=== PATIENT | female | born 1985 | race American Indian/Alaskan Native ===

== ENCOUNTER 2017-07-01 10:10 | Day surgery (SDC) | payer MEDICAID ==
--- NOTE | 2017-06-30 19:07 | History and Physical Report ---
History of Present Illness Date of examination: 06/28/17 Chief complaint: 9wks MAB History of present illness: IUP measuring 9w1d w/o fht. reviewed findings with patient Past History : 3 Term Births: 2 Living Children: 2 Para: 2 Aborta: 0 # 1 Delivery date: 2004 Weeks Gestation: term Delivery type: Delivery location: [facility] Sex: Male weight: 5#14 # 2 Delivery date: 2009 Weeks Gestation: 41 Delivery type: Delivery location: [facility] Sex: Male weight: 11lbs Past Medical History: no hx of dvt while taking ocp Depression - prosac Past Surgical History: Past Medical History Surgery (Non-ob gyn physician assistant): Abnormal PAP: positive, +HPV FRANCO Exposure: negative Infertility: negative Uterine Anomaly: negative Uterine Surgery (not C/S): negative Other Gynecologic Problems: negative Social Hx: Patient is single Smoking - 1/2 pack per day stay at home mom Infection History Hx of STD: HPV HIV Risk Eval: low risk Hepatitis B Risk Eval: low risk Personal hx. of genital herpes: no Partner hx. of genital herpes: no Rash, Viral, or Febrile illness since last LMP? no Varicella/Chicken Pox Status: Previous Disease Genetic History Congenital Heart Defect: Mom: no Dad: no Edmond Disease: Mom: no Dad: no Thalassemia Mom: no Dad: no Neural Tube Defect Mom: no Dad: no Down's Syndrome Mom: no Dad: no Bryan-Sachs Mom: no Dad: no Sickle Cell Disease/Trait Mom: no Dad: no Hemophilia Mom: no Dad: no Muscular Dystrophy Mom: no Dad: no Cystic Fibrosis Mom: no Dad: no [place] Chorea Mom: no Dad: no Mental Retardation Mom: no Dad: no Fragile X Mom: no Dad: no Other Genetic/Chromosomal Disorder Mom: no Dad: no Child w/other defect Mom: no Dad: no Enviromental Exposures Xray Exposure: no Medication, drug, or alcohol use since LMP: no Chemical/Other Exposure: no Exposure to Cat Liter: no Hx of Parvovirus (Fifth Disease): no Occupational Exposure to Children: none Active Medications (reviewed today): DEPO-PROVERA 150 MG/ML INTRAMUSCULAR SUSPENSION (MEDROXYPROGESTERONE ACETATE) 1 inj x every 12 weeks NYSTATIN-TRIAMCINOLONE 750551-8.1 UNIT/GM-% EXTERNAL CREAM (NYSTATIN- TRIAMCINOLONE) apply bid to area TANDEM DHA CAPS ([id number]-OMEGA 3 CAPS) T1 QD DIFLUCAN TAB 150MG () 1 po x 1 Current Allergies (reviewed today): * NKDA (Critical) Laboratory Results Urine HCG: positive Review of Systems General Denies fever, chills, sweats, anorexia, fatigue, weakness, malaise, weight loss and sleep disorder. Denies nausea, vomiting, headache, swelling of legs, abdominal pain, vaginal discharge, vaginal bleeding and contractions. Denies vaginal discharge, incontinence, dysuria, hematuria, urinary frequency, amenorrhea, menorrhagia, abnormal vaginal bleeding, pelvic pain, genital sores, decreased libido, painful periods, painful sex, urinary urgency, hot flashes, vaginal dryness, vaginal itching and vaginal odor. CV Denies chest pains, palpitations, syncope, dyspnea on exertion, orthopnea, PND and peripheral edema. Resp Denies cough, dyspnea at rest, excessive sputum, hemoptysis, wheezing and pleurisy. GI Denies nausea, vomiting, diarrhea, constipation, change in bowel habits, abdominal pain, melena, hematochezia, jaundice, gas/bloating, indigestion/ heartburn, dysphagia and odynophagia. Endo Denies cold intolerance, heat intolerance, polydipsia, polyphagia, polyuria and unusual weight change. Breast Denies left breast lump, right breast lump, nipple discharge, bloody discharge from nipple, breast pain, abnormal mammogram and breast enlargement. MS Denies back pain, joint pain, joint swelling, muscle cramps, muscle weakness, stiffness, arthritis, sciatica, restless legs, leg pain at night and leg pain with exertion. Derm Denies rash, itching, dryness and suspicious lesions. Neuro Denies paralysis, paresthesias, headache, seizures, tremors, vertigo, transient blindness, frequent falls, frequent headaches and difficulty walking. Psych Denies depression, anxiety, irritability and mood swings. Eyes Denies blurring, diplopia, irritation, discharge, vision loss, eye pain and photophobia. ENT Denies earache, ear discharge, tinnitus, decreased hearing, nasal congestion, nosebleeds, sore throat and hoarseness. Allergy Denies urticaria, allergic rash, hay fever and recurrent infections. Heme Denies abnormal bruising, bleeding and enlarged lymph nodes. PHYSICAL EXAM Skin no significant abnormal lesions or rashes Chest: respiratory effort normal, clear to auscultation CV: regular, normal S1-S2, no murmur, no rub, no gallop Abdomen: normal bowel sounds, soft, nontender, no HSM Musculoskeletal: grossly normal ROM in joints, no joint tenderness or muscle weakness Medications and Allergies Allergies Allergy/AdvReac Type Severity Reaction Status Date / Time No Known Allergies Allergy Verified 06/29/17 12:54 Home Medications Medication Instructions Recorded Confirmed Last Taken Type Loratadine 10 mg PO BID 06/29/17 06/29/17 Unknown History Active Meds: Active Medications Cefazolin Sodium (Ancef/Sterile Water 2 Gm/20 Ml) 2 gm in 20 mls @ 80 mls/hr IV PREOP NR PRN Reason: Protocol Assessment and Plan - Patient Problems (1) Missed Status: Acute Plan to address problem: Options reviewed, quesitons answered she voiced understanding. Patient with 9week MAB desires to proceed with D&C. Consent reviewed and signed . Possible laparoscopy or laparotomy explained to patient. The risks and alternatives for this surgery were reviewed with the patient. She was informed of possible bleeding, infection, injury to bowel, bladder, ureters or other adjacent organs. The patient was instructed/informed the following: The normal length of hospital stay for this procedure. Nothing to eat or drink after midnight the evening prior to surgery. Clear liquids the day before surgery. Pre-op instruction sheets given. Wound care instructions given. Infection precautions reviewed, patient to call for any signs or symptoms of infection. The usual discomforts associated with this procedure were detailed. Proper use of pain medicines was reviewed. Patient was given ample opportunity to have all her questions answered before signing informed consent.
[~2017-07-01 10:10] MED LIST: ANCEF/STERILE WATER 2 GM/20 ML 2 GM/20 ML SYRINGE IV NR
--- NOTE | 2017-07-01 12:44 | Anesthesia Consultation ---
Anesthesia Consult and Med Hx Date of service: 07/01/17 - Airway Anesthetic Teeth Evaluation: Good ROM Head & Neck: Adequate Mental/Hyoid Distance: Adequate Mallampati Class: Class I Intubation Access Assessment: Good - Pulmonary Exam CTA: Yes - Cardiac Exam Cardiac Exam: RRR - Pre-Operative Health Status ASA Pre-Surgery Classification: ASA2 Proposed Anesthetic Plan: General - Pulmonary Hx Smoking: Yes (current) - Central Nervous System Hx Psychiatric Problems: No - Other Systems Hx Cancer: No
--- NOTE | 2017-07-01 12:44 | Anesthesia Day of Surgery ---
Anesthesia Day of Surgery - Day of Surgery Patient Examined: Yes Patient H&P Reviewed: Yes Patient is NPO: Yes
[2017-07-01] MEDS ORDERED: DILAUDID IV PRN (12:45)
[2017-07-01] MEDS ORDERED: PERCOCET 5/325 PO PRN (12:45)
[2017-07-01 12:48] LABS: Mean Corpuscular HGB Conc 34 % (30-34); Mean Corpuscular Hemoglobin 33 pg (28-32); Mean Corpuscular Volume 97 fl (79-97); Platelet Count 272 K/mm3 (140-440); Red Blood Count 3.62 M/mm3 (3.65-5.03); Red Cell Distribution Width 12.3 % (13.2-15.2); White Blood Count 9.1 K/mm3 (4.5-11.0)
[2017-07-01] MEDS ORDERED: LACTATED RINGERS 1,000 ML IV SCH (13:00)
[2017-07-01] MEDS ORDERED: VERSED IV NR (13:00)
[2017-07-01] MEDS ORDERED: DILAUDID ONE (13:01)
[2017-07-01] MEDS ORDERED: DIPRIVAN 10 MG/ML IV ONE (13:01)
[2017-07-01] MEDS ORDERED: XYLOCAINE MPF 2% ONE (13:02)
[2017-07-01] MEDS ORDERED: ROBINUL ONE (13:02)
[2017-07-01] MEDS ORDERED: TORADOL ONE (13:02)
[2017-07-01] MEDS ORDERED: DECADRON ONE (13:02)
[2017-07-01] MEDS ORDERED: ZOFRAN ONE ×2 (13:02→15:02)
[2017-07-01] MEDS ORDERED: METHERGINE IM ONE (14:08)
[2017-07-01] MEDS ORDERED: NACL 0.9% IR ONE (14:09)
--- NOTE | 2017-07-01 14:18 | Operative Report ---
Operative Report Operative Report: Date of procedure: 07/01/2017 Pre-operative diagnosis: Missed Post-operative diagnosis: Same Procedure name(s): Suction dilatation and curettage Surgeon: Tad Francis MD General Accountant: [] Anesthesia: General EBL: 50 mL Complications: None Findings: A small amount of tissue consistent with products of conception Specimen(s): Uterine contents Procedure: The patient was brought operating room where general anesthesia was induced without difficulty. Patient was placed in dorsal lithotomy position prepped and draped in the usual sterile manner. Rubber catheter was used to empty her bladder. Speculum placed in the vagina. Tenaculum was placed at 12: 00. The cervix was dilated progressively with Hegar dilators. A 10 mm suction catheter was placed through the cervical os. Several passes of the suction catheter removed the uterine contents. General curettage was done with a banjo curettte. On until a gritty sensation was felt throughout the uterine cavity. Further suction with the suction curettage revealed no further products. All instruments were removed patient was hemostatic. She was awakened in the operating room and accompanied to recovery room in good condition.
--- NOTE | 2017-07-01 14:21 | Short Stay Summary ---
Short Stay Documentation Date of service: 07/01/17 - History H&P: dictated - Allergies and Medications Current Medications: Allergies No Known Allergies Allergy (Verified 06/29/17 12:54) Home Medications Medication Instructions Recorded Confirmed Last Taken Type Loratadine 10 mg PO BID 06/29/17 07/01/17 07/01/17 09:15 History Active Medications Hydromorphone HCl (Dilaudid) 0.5 mg IV Q10MIN PRN PRN Reason: Pain , Severe (7-10) Stop: 07/01/17 23:59 Cefazolin Sodium (Ancef/Sterile Water 2 Gm/20 Ml) 2 gm in 20 mls @ 80 mls/hr IV PREOP NR PRN Reason: Protocol Stop: 07/01/17 23:59 Lactated Ringer's (Lactated Ringers) 1,000 mls @ 100 mls/hr IV DIRECT BRITT Last Admin: 07/01/17 12:55 Dose: 100 mls/hr Midazolam HCl (Versed) 2 mg IV PREOP NR Stop: 07/01/17 23:59 Last Admin: 07/01/17 13:25 Dose: 2 mg Oxycodone/Acetaminophen (Percocet 5/325) 1 tab PO ONCE PRN PRN Reason: Pain, Moderate (4-6) - Brief post op/procedure progress note Date of procedure: 07/01/17 (See dictated note) Procedure: D&C - Hospital course Hospital course: Patient was admitted underwent the above him procedure without any complications. Patient will be discharged with follow-up in office in 1-2 weeks for postop check. - Disposition Condition at discharge: Good Disposition: DC-01 TO HOME OR SELFCARE - Discharge Diagnoses (1) Missed Status: Acute Short Stay Discharge Plan Activity: advance as tolerated Diet: regular Follow up with: JOHNATHON LYNN MD [Primary Care Provider] - 7 Days
[2017-07-01] MEDS ORDERED: SILVER NITRATE TP ONE (14:30)
--- NOTE | 2017-07-01 14:39 | Post Anesthesia Evaluation ---
- Post Anesthesia Evaluation Patient Participated: Yes Airway Patent: Yes Stable Respiratory Function: Yes Nausea/Vomiting: No Temp > 96.8F: Yes Pain Manageable: Yes Adequeate Hydration: Yes Anesthesia Complications: No
[2017-07-01] MEDS ORDERED: BENADRYL ONE (14:57)
[2017-07-01 15:53] VITALS: BP 127/81
[2017-07-01] MEDS ORDERED: BENADRYL IV ONE (16:14)
[2017-07-01] MEDS ORDERED: ZOFRAN IM ONE (16:15)
== END 2017-07-01 15:40 | disposition home or self-care (01) ==
LOC: OR 10:10
PROVIDERS: ATTEND Obstetrics & Gynecology
DX: O02.1 Missed abortion (principal); Z3A.09 9 weeks gestation of pregnancy; F17.200 Nicotine dependence, unspecified, uncomplicated; K21.9 Gastro-esophageal reflux disease without esophagitis; F32.9 Major depressive disorder, single episode, unspecified; Z98.890 Other specified postprocedural states; Z79.899 Other long term (current) drug therapy; Z98.42 Cataract extraction status, left eye
CPT/HCPCS: 36415; 59820; 85027; 86850; 86900; 86901; 88305; J0690; J1170; J1200; J1885; J2210; J2250; J2405; J2704; J7120; J1100

== ENCOUNTER 2020-09-14 22:32 | Inpatient (IN) | payer MEDICAID ==
[2020-09-14] MEDS ORDERED: LACTATED RINGERS 1,000 ML IV ONE (23:14)
[2020-09-14] MEDS ORDERED: LACTATED RINGERS 500 ML IV ONE (23:32)
[2020-09-14] MEDS ORDERED: ONDANSETRON 4 MG/2 ML INJ IV PRN (23:32)
[2020-09-14] MEDS ORDERED: LACTATED RINGERS 1,000 ML IV SCH (23:45)
[2020-09-15 00:17] LABS: Bilirubin,Urine NEG (Negative); Blood,Urine LG (Negative); Color,Urine Red (Yellow); Urobilinogen,Urine < 2.0 mg/dL (<2.0)
[2020-09-15 00:23] LABS: Protein,Urine >500 mg/dL (Negative); RBC,Urine < 182.0 /HPF (0.0-6.0); WBC,Urine > 182.0 /HPF (0.0-6.0)
--- NOTE | 2020-09-15 00:25 | History and Physical Report ---
History of Present Illness Date of examination: 09/15/20 (Vaginal bleeding) Date of admission: 09/14/2020 Chief complaint: "Heavy vaginal bleeding" that started tonight. History of present illness: Pt states bleeding that started tonight and became heavy after returning to bed from the restroom. Denies recent sexual activity and states that she has not been told that she has any abnormalities of the placenta. U/s in triage during this visit revealed low lying placenta. After the u/s was reviewed with the patient, she states that she was just told not to have sex. After further evaluation of her chart from the office, it was revealed that she has placenta previa. EDC Confirmation: 11/03/2020 Past History : 4 Term Births: 2 Premature Births: 0 Living Children: 2 Para: 2 Mult. Births: 0 Prev : 1 Prev. attempt? 0 Aborta: 1 Elect. Ab: 0 Spont. Ab: 1 Ectopics: 0 # 1 Delivery date: 2003 Weeks Gestation: term Delivery type: Delivery location: [facility] Infant Sex: Male weight: 5#14 # 2 Delivery date: 2009 Weeks Gestation: 41 Delivery type: Delivery location: [facility] Infant Sex: Male weight: 11lbs Comments: failed IOL # 3 Delivery date: 07/01/2017 Weeks Gestation: 9 Delivery type: SAB Delivery location: [facility] Comments: D&C done Risk Factors: Smoked Tobacco Use: Former smoker Cigarettes: Yes Year quit: 02/27/2020 Smokeless Tobacco Use: Never Counseled to quit/cut down: yes Passive smoke exposure: no Drug use: no HIV high-risk behavior: no Alcohol use: no Exercise: yes Seatbelt use: 100 % Dietary Counseling: pn yes Past Medical History: no hx of dvt while taking ocp Depression - prozac was 3x day has now decreased to QD Anxiety Past Medical History Abnormal PAP: negative FRANCO Exposure: negative Infertility: negative Uterine Anomaly: negative Uterine Surgery (not C/S): negative Other Gynecologic Problems: negative Social Hx: Patient is single Smoking - 1/2 pack per day; pt now reports 2 cigs/day; 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 Infection History Hx of STD: none HIV Risk Eval: no Hepatitis B Risk Eval: low risk Personal hx. of genital herpes: no Partner hx. of genital herpes: no Rash, Viral, or Febrile illness since last LMP? no Varicella/Chicken Pox Status: Previous Disease TB Risk: no Genetic History ADVANCED MATERNAL AGE Congenital Heart Defect: Mom: no Dad: no Edmond Disease: Mom: no Dad: no Thalassemia Mom: no Dad: no Neural Tube Defect Mom: no Dad: no Down's Syndrome Mom: no Dad: no Bryan-Sachs Mom: no Dad: no Sickle Cell Disease/Trait Mom: no Dad: no Hemophilia Mom: no Dad: no Muscular Dystrophy Mom: no Dad: no Cystic Fibrosis Mom: no Dad: no [place] Chorea Mom: no Dad: no Mental Retardation Mom: no Dad: no Fragile X Mom: no Dad: no Other Genetic/Chromosomal Disorder Mom: no Dad: no Child w/other defect Mom: no Dad: no Enviromental Exposures Xray Exposure: no Medication, drug, or alcohol use since LMP: no Chemical/Other Exposure: no Exposure to Cat Liter: no Hx of Parvovirus (Fifth Disease): no Occupational Exposure to Children: none Active Medications (reviewed today): OMEPRAZOLE () VALACYCLOVIR HCL 500 MG ORAL TABLET (VALACYCLOVIR HCL) 1 po bid x3 days as needed ZOLOFT 100 MG ORAL TABLET (SERTRALINE HCL) 1 q am Current Allergies (reviewed today): * NKDA (Critical) Past History Past Medical History: other (Anxiety, Depression) Past Surgical History: section Family/Genetic History: none Social history: single, smoking (Former) - Obstetrical History Expected Date of Delivery: 11/03/20 Actual Gestation: 33 Week(s) 0 Day(s) : 4 Para: 2 Hx # Term Pregnancies: 2 Number of Pregnancies: 0 Spontaneous Abortions: 1 Induced : 0 Number of Living Children: 2 Medications and Allergies Allergies Allergy/AdvReac Type Severity Reaction Status Date / Time No Known Allergies Allergy Verified 06/29/17 12:54 Home Medications Medication Instructions Recorded Confirmed Last Taken Type Loratadine 10 mg PO BID 06/29/17 09/15/20 07/01/17 09:15 History Active Meds: Active Medications Acetaminophen (Acetaminophen 500 Mg Tab) 1,000 mg PO Q6H PRN PRN Reason: Pain MILD(1-3)/Fever >100.5/MACDONALD Al Hydrox/Mg Hydrox/Simethicone (Alum-Mag Hydroxide-Simethicone [id number]/5ml Oral Liqd 30 Ml) 30 ml PO Q6H PRN PRN Reason: Indigestion Diphenhydramine HCl (Diphenhydramine 25 Mg Cap) 25 mg PO Q6H PRN PRN Reason: Itching Docusate Sodium (Docusate Sodium 100 Mg Cap) 100 mg PO Q12H PRN PRN Reason: Constipation Lactated Ringer's (Lactated Ringers) 1,000 mls @ 125 mls/hr IV DIRECT BRITT Multivitamins/Iron/Calcium ( Jdt73-Aa Fumarate-Folic Acid Vit Tab) 1 each PO QDAY BRITT Ondansetron HCl (Ondansetron 4 Mg/2 Ml Inj) 4 mg IV Q6H PRN PRN Reason: Nausea And Vomiting Review of Systems All systems: negative - Vital Signs Vital signs: Vital Signs Pulse Pulse Ox 89 98 09/14/20 22:59 09/14/20 22:59 Temp Pulse Resp BP Pulse Ox 98.6 F 80 18 104/68 75 L 09/14/20 23:00 09/15/20 00:19 09/14/20 23:00 09/14/20 23:00 09/15/20 00:19 Pt with history of anxiety and depression. Denies SI, wanting to harm self or anyone else at this time. - Physical Exam Breasts: Positive: deferred Cardiovascular: Regular rate Lungs: Positive: Normal air movement Abdomen: Positive: normal appearance, soft, normal bowel sounds. Negative: distention, tenderness Genitourinary (Female): Positive: normal external genitalia, normal perenium Vulva: both: normal Vagina: Positive: other (Small amount of blood noted on peripad underneath patient. No clots noted. ) Cervix: Negative: lesion, discharge Uterus: Positive: normal size, normal contour Adnexa: both: normal Anus/Rectum: Positive: normal perianal skin, heme negative. Negative: rectal mass, hemorrhoids Extremities: Positive: normal Deep Tendon Reflex Grade: Normal +2 - Obstetrical FHR: auscultation normal, category 1 Uterine Contraction Monitor Mode: External Cervical Dilatation: 0 Cervical Effacement Percentage: 0 station: OOP Uterine Contraction Pattern: Irregular Uterine Tone Measurement Phase: Resting Uterine Contraction Intensity: Mild Results Result Diagrams: 09/14/20 23:40 09/14/20 23:40 Abnormal lab results 09/14/20 Range/Units 23:18 Urine WBC (Auto) > 182.0 H (0.0-6.0) /HPF All other labs normal. GBS UNKNOWN HBsAg Screen Negative Negative *1 RPR Non Reactive Non Reactive *2 Rubella Antibodies, IgG 1.74 index Immune >0.99 *3 Non-immune <0.90 Equivocal 0.90 - 0.99 Immune >0.99 ABO Grouping O *4 Rh Factor Positive *5 Please note: Prior records for this patient's ABO / Rh type are not available for additional verification. Antibody Screen Negative Negative *6 Tests: (2) HB Solu + Rflx Frac (569063) Hemoglobin (Hgb) Solubility Negative Negative *31 Tests: (3) HIV Ag/Ab with Reflex ([id number]) HIV Screen 4th Generation wRfx Non Reactive Non Reactive *32 Tests: (4) HCV Ab w/Rflx to Verification ([id number]) ! HCV Ab 0.1 s/co ratio 0.0-0.9 *33 Tests: (5) Comment: ([id number]) ! Comment: SPRCS *34 Non reactive HCV antibody screen is consistent with no HCV infection, unless recent infection is suspected or other evidence exists to indicate HCV infection. T Assessment and Plan 35 y.o., @ 33 wks with c/o vaginal bleeding. Consulted with and plan made with Dr. Beth. - Patient Problems (1) Low lying placenta with hemorrhage in third trimester, antepartum Onset Date: ~08/30/20 Current Visit: Yes Status: Acute Plan to address problem: Admit to labor and delivery for observation. Check CBC, CMP. Ultrasound to r/o placental abruption, placental location, and cervical length. (completed) (2) 33 weeks gestation of Onset Date: ~09/15/20 Current Visit: Yes Status: Acute Plan to address problem: EFM to monitor for s/sx of pre term labor and distress.
[2020-09-15 00:26] LABS: Basophils % (Auto) 0.2 % (0.0-1.8); Eosinophils % (Auto) 0.3 % (0.0-4.3); Hematocrit 27.3 % (30.3-42.9); Hemoglobin 9.3 gm/dl (10.1-14.3); Lymphocytes # (Auto) 2.7 K/mm3 (1.2-5.4); Lymphocytes % (Auto) 21.7 % (13.4-35.0); Mean Corpuscular HGB Conc 34 % (30-34); Mean Corpuscular Volume 95 fl (79-97); Monocytes # (Auto) 1.2 K/mm3 (0.0-0.8); Monocytes % (Auto) 9.5 % (0.0-7.3); Platelet Count 377 K/mm3 (140-440); Red Blood Count 2.89 M/mm3 (3.65-5.03); Red Cell Distribution Width 12.7 % (13.2-15.2)
--- NOTE | 2020-09-15 00:42 | Ultrasound Report ---
US OB LIMITED INDICATION / CLINICAL INFORMATION: Cervical length; r/o placental abruption.. COMPARISON: None available. FINDINGS: There is a single intrauterine in a cephalic presentation. The heart rate is 147 bpm. The placenta is located posteriorly, is grade 1 and is low lying without previa or abruption. The ce rvix measures 3.2 cm in length and the internal os is closed. Signer Name: Aditya Arevalo MD Signed: 09/15/2020 12:38 AM Workstation Name: [id number]
[2020-09-15] MEDS: ACETAMINOPHEN 500 MG TAB PO PRN ×4 (00:56→22:36)
[2020-09-15] MEDS: ALUM-MAG HYDROXIDE-SIMETHICONE 200-200-20MG/5ML ORAL LIQD 30 ML PO PRN (00:57)
[2020-09-15] MEDS: BETAMET ACET/BETAMET NA PH 6 MG/ML INJ 5 ML MDV IM SCH (00:57)
[2020-09-15] MEDS ORDERED: FERROUS SULFATE 325 MG TAB PO ONE (01:31)
[2020-09-15 01:46] LABS: Alanine Aminotransferase 10 units/L (7-56); Albumin 3.3 g/dL (3.9-5); Blood Urea Nitrogen 9 mg/dL (7-17); Calcium 8.8 mg/dL (8.4-10.2); Hemolysis Index 30
[2020-09-15 01:47] LABS: BUN/Creatinine Ratio 18
[2020-09-15] MEDS ORDERED: fentaNYL 100 MCG/2 ML INJ IV ONE ×2 (03:25→21:03)
[2020-09-15] MEDS ORDERED: MAGNESIUM SULFATE 4 GM/100 ML BAG IV ONE (05:24)
--- NOTE | 2020-09-15 06:01 | Event Note ---
Date: 09/15/20 (Increase in ctxs and vaginal bleeding) Received a call from Ernesto MOTA that patient was having increase in ctxs and vaginal bleeding. Upon entering room examined pad that patient had on prior to my arrival. There was approximately 100 ml of blood on the pad. Inspected the patient's perineum and there is a small amount of blood seen coming from the vagina. Magnesium has been ordered and started. Pt has had one dose of steroids. NICU team has been consulted. Updated Dr. Beth on patient condition. Explained findings and plan of care to patient: Magnesium for neuroprotection and to help slow down and hopefully stop contractions. She was also informed that she would not be able to get out of bed while on magnesium and the NICU team will come and speak with her if she delivers a @ 33 wks. Pt verbalized understanding and agrees with plan of care at this time. Will continuously and closely monitor patient.
[2020-09-15] MEDS: MAGNESIUM SULFATE 40GM/1000ML 40 GM/1,000 ML BAG IV SCH (06:06)
[2020-09-15] MEDS: PRENATAL VIT27-FE FUMARATE-FOLIC ACID VIT TAB PO SCH (09:06)
[2020-09-15] MEDS: FAMOTIDINE 20 MG TAB PO SCH (09:06)
[2020-09-15] MEDS: SERTRALINE 100 MG TAB PO SCH (09:06)
--- NOTE | 2020-09-15 09:34 | Event Note ---
Date: 09/15/20 ([facility]) Spoke with Dr. Kieta and made her aware of pt condition, status.
[2020-09-15] MEDS: LACTATED RINGERS 1,000 ML IV SCH ×2 (09:46→23:26)
--- NOTE | 2020-09-15 12:25 | Ultrasound Report ---
ULTRASOUND OBSTETRIC LIMITED ULTRASOUND BIOPHYSICAL PROFILE INDICATION / CLINICAL INFORMATION: Vaginal bleeding, well being. Clinical Gestational Age (GA): 33.1 weeks.days COMPARISON: None available. FINDINGS: BREATHING MOVEMENT = 2 GROSS BODY MOVEMENT = 2 TONE = 2 QUALITATIVE AMNIOTIC FLUID VOLUME = 2 TOTAL BIOPHYSICAL SCORE = 8/8 HEART RATE (beats per minute): 122 AMNIOTIC FLUID INDEX (cm) = largest pocket 4.2 cm PRESENTATION: Cephalic. ADDITIONAL FINDINGS: None. IMPRESSION: 1. Biophysical Score = 8/8 Signer Name: Mark Castillo MD Signed: 09/15/2020 12:21 PM Workstation Name: [id number]
--- NOTE | 2020-09-15 12:35 | Consultation ---
Consult Note - Parent Education I met with parent(s) and discussed the following:: Need for NICU admission, Poss ible need for intubation and surfactant or other resp support, Temperature regulation, Possible need for IV fluids/TPN and IV antibiotics, Possible need for umbilical lines, Importance of providing breast milk & encouraged pumping aft delivery, Slow feeding advancement and monitoring of tolerance. NG/OG feeds, Need to monitor for jaundice Parent(s) demonstrated understanding of all the information:: Yes Assessment and Plan - Assessment Baby's gender: Female - Plan Plan: Agree with Mag & steroids Will attend delivery Please call NICU with questions
[2020-09-15 12:41] LABS: Hematocrit 27.1 % (30.3-42.9); Hemoglobin 9.1 gm/dl (10.1-14.3)
--- NOTE | 2020-09-15 13:25 | Event Note ---
Date: 09/15/20 Pt seen and evaluated. Does not report any vaginal bleeding at the time of my visit and states she is feeling better as far as the contractions. I advised that MFM had been consulted and that she will likely remain inhouse until she does not have any further episodes of bleeding. pt expressed understanding and agrees with plan of care. steroids given times one today.
[2020-09-15] MEDS: diphenhydrAMINE 25 MG CAP PO PRN (19:33)
[2020-09-15] MEDS ORDERED: fentaNYL 100 MCG/2 ML INJ ONE (20:36)
[2020-09-16] MEDS ORDERED: PROMETHAZINE 25 MG TAB PO PRN (00:22)
--- NOTE | 2020-09-16 00:43 | Event Note ---
Date: 09/16/20 (Pt with a MACDONALD) Received a call from the RN taking care of patient regarding a headache. States that patient has had several doses of Extra Strength Tylenol and it is not reliving her MACDONALD. Consulted with Dr. Beth. Will order Tylenol # 3 X 1 for MACDONALD relief. Also per RN, pt has had scant bleeding and no ctxs on the monitor, so will allow for a regular diet at this time.
[2020-09-16] MEDS: BETAMET ACET/BETAMET NA PH 6 MG/ML INJ 5 ML MDV IM SCH (01:05)
[2020-09-16] MEDS: MAGNESIUM SULFATE 40GM/1000ML 40 GM/1,000 ML BAG IV SCH (01:44)
--- NOTE | 2020-09-16 03:38 | Event Note ---
Date: 09/16/20 (Pt lethargic) Received call from RN that patient seemed slightly more lethargic than normal and had slightly decreased deep tendon reflexes. Will off mag for now. Stat magnesium level ordered. Level at midnight was 6.6. Patient has had her second does of steriods and is no longer edi or bleeding. She is to be seen by [facility] today. Updated Dr. Beth on pt status.
[2020-09-16] MEDS ORDERED: ACETAMINOPHEN W/CODEINE 300-30 MG TAB PO ONE (04:00)
--- NOTE | 2020-09-16 06:13 | Progress Note ---
Assessment and Plan Pt sleeping easily aroused Denies any ctx no vaginal bleeding. Pt reports good FM. Denies any sx of mag toxicity. "I'm just sleepy." BMZ completed Ordered stat mag level not yet resulted. Consult with Dr Francis. Mag Level 4.90 Subjective - Subjective Date of service: 09/16/20 (Sleeping ) Principal diagnosis: IUP@ 33w1d CTX and bleeding; prev c/s BMZ completed Patient reports: movement normal Objective - Vital Signs Vital Signs: Vital Signs - 12hr 09/15/20 09/15/20 09/15/20 18:13 18:18 18:23 Temperature Pulse Rate 105 H 105 H 109 H Respiratory Rate Blood Pressure Blood Pressure [Left] O2 Sat by Pulse 98 99 98 Oximetry 09/15/20 09/15/20 09/15/20 18:28 18:33 18:38 Temperature Pulse Rate 111 H 107 H 106 H Respiratory Rate Blood Pressure Blood Pressure [Left] O2 Sat by Pulse 97 97 97 Oximetry 09/15/20 09/15/20 09/15/20 18:43 18:48 18:53 Temperature Pulse Rate 100 H 114 H 108 H Respiratory Rate Blood Pressure Blood Pressure [Left] O2 Sat by Pulse 97 98 97 Oximetry 09/15/20 09/15/20 09/15/20 18:58 19:03 19:07 Temperature Pulse Rate 108 H 103 H 99 H Respiratory Rate Blood Pressure 105/56 Blood Pressure [Left] O2 Sat by Pulse 97 97 Oximetry 09/15/20 09/15/20 09/15/20 19:08 19:13 19:18 Temperature Pulse Rate 104 H 102 H 102 H Respiratory Rate Blood Pressure Blood Pressure [Left] O2 Sat by Pulse 96 97 98 Oximetry 09/15/20 09/15/20 09/15/20 19:23 19:28 19:33 Temperature 97.8 F Pulse Rate 100 H 102 H 103 H Respiratory 18 Rate Blood Pressure Blood Pressure 105/56 [Left] O2 Sat by Pulse 98 97 98 Oximetry 09/15/20 09/15/20 09/15/20 19:38 19:43 19:48 Temperature Pulse Rate 107 H 103 H 107 H Respiratory Rate Blood Pressure Blood Pressure [Left] O2 Sat by Pulse 99 98 98 Oximetry 09/15/20 09/15/20 09/15/20 19:53 19:58 20:03 Temperature Pulse Rate 111 H 108 H 102 H Respiratory Rate Blood Pressure Blood Pressure [Left] O2 Sat by Pulse 98 98 99 Oximetry 09/15/20 09/15/20 09/15/20 20:07 20:08 20:13 Temperature Pulse Rate 96 H 101 H 110 H Respiratory Rate Blood Pressure 100/56 Blood Pressure [Left] O2 Sat by Pulse 98 98 Oximetry 09/15/20 09/15/20 09/15/20 20:18 20:23 20:28 Temperature Pulse Rate 107 H 101 H 121 H Respiratory Rate Blood Pressure Blood Pressure [Left] O2 Sat by Pulse 98 98 98 Oximetry 09/15/20 09/15/20 09/15/20 20:33 20:38 20:43 Temperature Pulse Rate 100 H 104 H 101 H Respiratory Rate Blood Pressure Blood Pressure [Left] O2 Sat by Pulse 98 99 98 Oximetry 09/15/20 09/15/20 09/15/20 20:48 20:53 20:58 Temperature Pulse Rate 116 H 106 H 104 H Respiratory Rate Blood Pressure Blood Pressure [Left] O2 Sat by Pulse 97 97 97 Oximetry 09/15/20 09/15/20 09/15/20 21:03 21:08 21:09 Temperature Pulse Rate 107 H 85 85 Respiratory Rate Blood Pressure 107/66 Blood Pressure [Left] O2 Sat by Pulse 97 98 Oximetry 09/15/20 09/15/20 09/15/20 21:13 21:18 21:23 Temperature Pulse Rate 102 H 90 92 H Respiratory Rate Blood Pressure Blood Pressure [Left] O2 Sat by Pulse 98 98 97 Oximetry 09/15/20 09/15/20 09/15/20 21:28 21:33 21:38 Temperature Pulse Rate 87 96 H 94 H Respiratory Rate Blood Pressure Blood Pressure [Left] O2 Sat by Pulse 97 98 98 Oximetry 09/15/20 09/15/20 09/15/20 21:43 21:48 21:53 Temperature Pulse Rate 95 H 93 H 98 H Respiratory Rate Blood Pressure Blood Pressure [Left] O2 Sat by Pulse 97 97 96 Oximetry 09/15/20 09/15/20 09/15/20 21:58 22:03 22:08 Temperature Pulse Rate 106 H 93 H 94 H Respiratory Rate Blood Pressure 102/82 Blood Pressure [Left] O2 Sat by Pulse 97 96 97 Oximetry 09/15/20 09/15/20 09/15/20 22:13 22:18 22:23 Temperature Pulse Rate 98 H 100 H 92 H Respiratory Rate Blood Pressure Blood Pressure [Left] O2 Sat by Pulse 97 98 98 Oximetry 09/15/20 09/15/20 09/15/20 22:28 22:33 22:38 Temperature Pulse Rate 101 H 92 H 115 H Respiratory Rate Blood Pressure Blood Pressure [Left] O2 Sat by Pulse 100 100 99 Oximetry 09/15/20 09/15/20 09/15/20 22:43 22:48 22:53 Temperature Pulse Rate 93 H 98 H 93 H Respiratory Rate Blood Pressure Blood Pressure [Left] O2 Sat by Pulse 98 99 99 Oximetry 09/15/20 09/15/20 09/15/20 22:58 23:03 23:08 Temperature Pulse Rate 92 H 104 H 100 H Respiratory Rate Blood Pressure 108/77 Blood Pressure [Left] O2 Sat by Pulse 99 99 100 Oximetry 09/15/20 09/15/20 09/15/20 23:13 23:18 23:23 Temperature Pulse Rate 97 H 91 H 94 H Respiratory Rate Blood Pressure Blood Pressure [Left] O2 Sat by Pulse 98 99 98 Oximetry 09/15/20 09/15/20 09/15/20 23:28 23:33 23:38 Temperature Pulse Rate 94 H 97 H 101 H Respiratory Rate Blood Pressure Blood Pressure [Left] O2 Sat by Pulse 98 98 98 Oximetry 09/15/20 09/15/20 09/15/20 23:43 23:48 23:53 Temperature Pulse Rate 91 H 94 H 97 H Respiratory Rate Blood Pressure Blood Pressure [Left] O2 Sat by Pulse 98 97 97 Oximetry 09/15/20 09/16/20 09/16/20 23:58 00:03 00:06 Temperature Pulse Rate 94 H 94 H 92 H Respiratory Rate Blood Pressure 100/55 Blood Pressure [Left] O2 Sat by Pulse 98 98 Oximetry 09/16/20 09/16/20 09/16/20 00:08 00:13 00:18 Temperature 97.3 F L Pulse Rate 94 H 101 H 95 H Respiratory 16 Rate Blood Pressure Blood Pressure 100/55 [Left] O2 Sat by Pulse 98 97 97 Oximetry 09/16/20 09/16/20 09/16/20 00:23 00:28 00:33 Temperature Pulse Rate 106 H 102 H 102 H Respiratory Rate Blood Pressure Blood Pressure [Left] O2 Sat by Pulse 97 97 98 Oximetry 09/16/20 09/16/20 09/16/20 00:38 00:43 00:48 Temperature Pulse Rate 98 H 94 H 100 H Respiratory Rate Blood Pressure Blood Pressure [Left] O2 Sat by Pulse 97 97 98 Oximetry 09/16/20 09/16/20 09/16/20 00:53 00:58 01:03 Temperature Pulse Rate 97 H 106 H 105 H Respiratory Rate Blood Pressure Blood Pressure [Left] O2 Sat by Pulse 98 97 97 Oximetry 09/16/20 09/16/20 09/16/20 01:07 01:08 01:13 Temperature Pulse Rate 103 H 100 H 88 Respiratory Rate Blood Pressure 114/75 Blood Pressure [Left] O2 Sat by Pulse 98 99 Oximetry 09/16/20 09/16/20 09/16/20 01:18 01:23 01:28 Temperature Pulse Rate 99 H 116 H 97 H Respiratory Rate Blood Pressure Blood Pressure [Left] O2 Sat by Pulse 97 98 99 Oximetry 09/16/20 09/16/20 09/16/20 01:33 01:38 01:43 Temperature Pulse Rate 104 H 93 H 91 H Respiratory Rate Blood Pressure Blood Pressure [Left] O2 Sat by Pulse 97 99 100 Oximetry 09/16/20 09/16/20 09/16/20 01:48 01:53 01:58 Temperature Pulse Rate 96 H 98 H 96 H Respiratory Rate Blood Pressure Blood Pressure [Left] O2 Sat by Pulse 97 97 97 Oximetry 09/16/20 09/16/20 09/16/20 02:03 02:06 02:08 Temperature Pulse Rate 99 H 99 H 104 H Respiratory Rate Blood Pressure 110/61 Blood Pressure [Left] O2 Sat by Pulse 98 97 Oximetry 09/16/20 09/16/20 09/16/20 02:13 02:18 02:23 Temperature Pulse Rate 110 H 121 H 102 H Respiratory Rate Blood Pressure Blood Pressure [Left] O2 Sat by Pulse 96 98 98 Oximetry 09/16/20 09/16/20 09/16/20 02:28 02:33 02:38 Temperature Pulse Rate 102 H 100 H 104 H Respiratory Rate Blood Pressure Blood Pressure [Left] O2 Sat by Pulse 97 98 98 Oximetry 09/16/20 09/16/20 09/16/20 02:43 02:48 02:53 Temperature Pulse Rate 90 97 H 97 H Respiratory Rate Blood Pressure Blood Pressure [Left] O2 Sat by Pulse 98 98 98 Oximetry 09/16/20 09/16/20 09/16/20 02:58 03:03 03:06 Temperature Pulse Rate 97 H 98 H 95 H Respiratory Rate Blood Pressure 89/54 Blood Pressure [Left] O2 Sat by Pulse 97 97 Oximetry 09/16/20 09/16/20 09/16/20 03:08 03:12 03:13 Temperature Pulse Rate 101 H 94 H 101 H Respiratory Rate Blood Pressure 94/53 Blood Pressure [Left] O2 Sat by Pulse 97 96 Oximetry 09/16/20 09/16/20 09/16/20 03:18 03:23 03:28 Temperature Pulse Rate 100 H 100 H 96 H Respiratory Rate Blood Pressure Blood Pressure [Left] O2 Sat by Pulse 97 97 96 Oximetry 09/16/20 09/16/20 09/16/20 03:33 03:38 03:42 Temperature Pulse Rate 100 H 93 H 100 H Respiratory Rate Blood Pressure 95/60 Blood Pressure [Left] O2 Sat by Pulse 95 97 Oximetry 09/16/20 09/16/20 09/16/20 03:43 03:48 03:53 Temperature 98.2 F Pulse Rate 96 H 97 H 92 H Respiratory 16 Rate Blood Pressure Blood Pressure 95/60 [Left] O2 Sat by Pulse 100 100 99 Oximetry 09/16/20 09/16/20 09/16/20 03:58 04:03 04:07 Temperature Pulse Rate 96 H 100 H 92 H Respiratory Rate Blood Pressure 95/53 Blood Pressure [Left] O2 Sat by Pulse 98 98 Oximetry 09/16/20 09/16/20 09/16/20 04:08 04:13 04:18 Temperature Pulse Rate 94 H 101 H 94 H Respiratory Rate Blood Pressure Blood Pressure [Left] O2 Sat by Pulse 98 98 98 Oximetry 09/16/20 09/16/20 09/16/20 04:23 04:28 04:33 Temperature Pulse Rate 101 H 95 H 94 H Respiratory Rate Blood Pressure Blood Pressure [Left] O2 Sat by Pulse 98 98 97 Oximetry 09/16/20 09/16/20 09/16/20 04:38 04:43 04:46 Temperature Pulse Rate 104 H 108 H 97 H Respiratory Rate Blood Pressure 94/57 Blood Pressure [Left] O2 Sat by Pulse 97 97 Oximetry 09/16/20 09/16/20 09/16/20 04:47 04:48 04:53 Temperature Pulse Rate 100 H 98 H 99 H Respiratory Rate Blood Pressure Blood Pressure [Left] O2 Sat by Pulse 94 98 97 Oximetry 09/16/20 09/16/20 09/16/20 04:58 05:03 05:07 Temperature Pulse Rate 97 H 93 H 87 Respiratory Rate Blood Pressure 90/56 Blood Pressure [Left] O2 Sat by Pulse 98 97 Oximetry 09/16/20 09/16/20 09/16/20 05:08 05:13 05:18 Temperature Pulse Rate 89 96 H 101 H Respiratory Rate Blood Pressure Blood Pressure [Left] O2 Sat by Pulse 98 98 98 Oximetry 09/16/20 09/16/20 09/16/20 05:23 05:28 05:33 Temperature Pulse Rate 98 H 96 H 97 H Respiratory Rate Blood Pressure Blood Pressure [Left] O2 Sat by Pulse 97 97 97 Oximetry 09/16/20 09/16/20 09/16/20 05:38 05:43 05:46 Temperature Pulse Rate 101 H 87 92 H Respiratory Rate Blood Pressure Blood Pressure [Left] O2 Sat by Pulse 96 98 90 Oximetry 09/16/20 09/16/20 09/16/20 05:48 05:53 05:58 Temperature Pulse Rate 86 102 H 94 H Respiratory Rate Blood Pressure Blood Pressure [Left] O2 Sat by Pulse 100 99 98 Oximetry 09/16/20 09/16/20 09/16/20 06:03 06:06 06:08 Temperature Pulse Rate 96 H 85 98 H Respiratory Rate Blood Pressure 102/59 Blood Pressure [Left] O2 Sat by Pulse 99 98 Oximetry - Exam Breasts: deferred Cardiovascular: Regular rate Lungs: Clear to auscultation, Normal air movement Abdomen: Present: normal appearance, soft. Absent: distention, tenderness Uterus: Present: normal FHR: auscultation normal, category 1 Uterine Contraction Monitor Mode: External Extremities: normal Deep Tendon Reflex Grade: Normal +2 - Labs Labs: Abnormal Labs 09/14/20 09/14/20 09/14/20 23:18 23:40 23:40 WBC 12.3 H RBC 2.89 L Hgb 9.3 L Hct 27.3 L RDW 12.7 L [place] % (Auto) 9.5 H [place] # (Auto) 1.2 H Seg Neutrophils # 8.4 H Sodium 132 L Carbon Dioxide 21 L Creatinine 0.5 L Magnesium Alkaline Phosphatase 143 H Total Protein 6.1 L Albumin 3.3 L Urine WBC (Auto) > 182.0 H 09/15/20 09/15/20 09/15/20 11:37 12:10 17:46 WBC RBC Hgb 9.1 L Hct 27.1 L RDW [place] % (Auto) [place] # (Auto) Seg Neutrophils # Sodium Carbon Dioxide Creatinine Magnesium 5.40 H 6.30 H Alkaline Phosphatase Total Protein Albumin Urine WBC (Auto) 09/16/20 00:33 WBC RBC Hgb Hct RDW [place] % (Auto) [place] # (Auto) Seg Neutrophils # Sodium Carbon Dioxide Creatinine Magnesium 6.60 H Alkaline Phosphatase Total Protein Albumin Urine WBC (Auto) Laboratory Results - last 24 hr 09/15/20 09/15/20 09/15/20 09:50 11:37 12:10 Hgb 9.1 L Hct 27.1 L Magnesium 5.40 H Coronavirus (PCR) Negative 09/15/20 09/16/20 17:46 00:33 Hgb Hct Magnesium 6.30 H 6.60 H Coronavirus (PCR)
--- NOTE | 2020-09-16 08:11 | Consultation ---
History of Present Illness Consult date: 09/16/20 Past History Past Medical History: other (Anxiety, Depression) Past Surgical History: section Family/Genetic History: none - Obstetrical History : 4 Medications and Allergies Allergies Allergy/AdvReac Type Severity Reaction Status Date / Time No Known Allergies Allergy Verified 06/29/17 12:54 Home Medications Medication Instructions Recorded Confirmed Last Taken Type Loratadine 10 mg PO BID 06/29/17 09/15/20 07/01/17 09:15 History Active Meds: Active Medications Acetaminophen (Acetaminophen 500 Mg Tab) 1,000 mg PO Q6H PRN PRN Reason: Pain MILD(1-3)/Fever >100.5/[facility]DONALD Last Admin: 09/15/20 22:36 Dose: 1,000 mg Documented by: Al Hydrox/Mg Hydrox/Simethicone (Alum-Mag Hydroxide-Simethicone [id number]/5ml Oral Liqd 30 Ml) 30 ml PO Q6H PRN PRN Reason: Indigestion Last Admin: 09/15/20 00:57 Dose: 30 ml Documented by: Diphenhydramine HCl (Diphenhydramine 25 Mg Cap) 25 mg PO Q6H PRN PRN Reason: Itching Last Admin: 09/15/20 19:33 Dose: 25 mg Documented by: Docusate Sodium (Docusate Sodium 100 Mg Cap) 100 mg PO Q12H PRN PRN Reason: Constipation Famotidine (Famotidine 20 Mg Tab) 20 mg PO QDAY [facility] Last Admin: 09/15/20 09:06 Dose: 20 mg Documented by: Ferrous Sulfate (Ferrous Sulfate 325 Mg Tab) 325 mg PO QDAY [facility] Lactated Ringer's (Lactated Ringers) 1,000 mls @ 125 mls/hr IV DIRECT [facility] Last Admin: 09/15/20 23:26 Dose: 75 mls/hr Documented by: Magnesium Sulfate (Magnesium Sulfate 40gm/1000ml) 40 gm in 1,000 mls @ 50 mls/hr IV DIRECT [facility] Last Admin: 09/16/20 01:44 Dose: 2 gm/hr, 50 mls/hr Documented by: Multivitamins/Iron/Calcium ( Qni01-Cr Fumarate-Folic Acid Vit Tab) 1 e ach PO QDAY [facility] Last Admin: 09/15/20 09:06 Dose: 1 each Documented by: Promethazine HCl (Promethazine 25 Mg Tab) 25 mg PO Q6H PRN PRN Reason: Nausea And Vomiting Sertraline HCl (Sertraline 100 Mg Tab) 100 mg PO QDAY [facility] Last Admin: 09/15/20 09:06 Dose: 100 mg Documented by: - Vital Signs Vital signs: Vital Signs Pulse Pulse Ox 89 98 09/14/20 22:59 09/14/20 22:59 Temp Pulse Resp BP Pulse Ox 98.2 F 94 H 16 100/68 99 09/16/20 03:48 09/16/20 08:08 09/16/20 03:48 09/16/20 08:08 09/16/20 08:08 Results Result Diagrams: 09/15/20 12:10 09/14/20 23:40 Abnormal lab results 09/15/20 09/15/20 09/15/20 Range/Units 11:37 12:10 17:46 Hgb 9.1 L (10.1-14.3) gm/dl Hct 27.1 L (30.3-42.9) % Magnesium 5.40 H 6.30 H (1.7-2.3) mg/dL 09/16/20 09/16/20 Range/Units 00:33 05:40 Hgb (10.1-14.3) gm/dl Hct (30.3-42.9) % Magnesium 6.60 H 4.90 H (1.7-2.3) mg/dL All other labs normal. Assessment and Plan [facility] pt seen Full consult to follow Fw
[2020-09-16] MEDS: ACETAMINOPHEN 500 MG TAB PO PRN ×2 (08:56→14:57)
[2020-09-16] MEDS: FAMOTIDINE 20 MG TAB PO SCH (09:08)
[2020-09-16] MEDS: FERROUS SULFATE 325 MG TAB PO SCH (09:08)
[2020-09-16] MEDS: PRENATAL VIT27-FE FUMARATE-FOLIC ACID VIT TAB PO SCH (09:08)
[2020-09-16] MEDS: DOCUSATE SODIUM 100 MG CAP PO PRN ×2 (09:08→09:23)
[2020-09-16] MEDS: SERTRALINE 100 MG TAB PO SCH (09:08)
[2020-09-16] MEDS: diphenhydrAMINE 25 MG CAP PO PRN ×2 (10:48→20:42)
[2020-09-16] MEDS: LACTATED RINGERS 1,000 ML IV SCH ×2 (14:14→15:17)
[2020-09-16] MEDS: ALUM-MAG HYDROXIDE-SIMETHICONE 200-200-20MG/5ML ORAL LIQD 30 ML PO PRN (15:00)
--- NOTE | 2020-09-16 15:03 | Event Note ---
Date: 09/16/20 Called to see patient after patient been up with complaints some spotting and some uterine cramps. Patient now resting in bed without complaints of pain. The vaginal bleeding was noted with wiping no active bleeding noted. Discussed with the patient her diagnosis of low-lying placenta. We will continue to watch patient for now precautions are given for bleeding. Patient status post betamethasone and if continue 24 hours without bleeding may discharge. If patient has significant signs of labor or significant vaginal bleeding would move to delivery.
[2020-09-16] MEDS ORDERED: fentaNYL 100 MCG/2 ML INJ IV ONE (17:01)
[2020-09-16] MEDS ORDERED: MAGNESIUM HYDROXIDE (MOM) ORAL LIQD UDC PO PRN (18:28)
[2020-09-16] MEDS ORDERED: BUTORPHANOL 2 MG/1 ML INJ IV ONE (23:37)
--- NOTE | 2020-09-17 08:28 | Progress Note ---
Assessment and Plan small amount of dark red blood on peripad, about 1/2 dollar size. no active bleeding noted from vaginal . FHT CAT 1. pt denies pain or cramping. - Patient Problems (1) 33 weeks gestation of Onset Date: ~09/15/20 Current Visit: Yes Status: Acute (2) Low lying placenta with hemorrhage in third trimester, antepartum Onset Date: ~08/30/20 Current Visit: Yes Status: Acute Subjective - Subjective Date of service: 09/17/20 Principal diagnosis: IUP@ 33w2d CTX and bleeding; prev c/s BMZ completed Patient reports: vaginal bleeding (when voiding ), movement normal, no new complaints, no loss of fluid, no contractions Objective - Vital Signs Vital Signs: Vital Signs - 12hr 09/16/20 09/16/20 09/16/20 20:27 20:32 20:37 Pulse Rate 99 H 80 83 O2 Sat by Pulse 97 97 97 Oximetry 09/16/20 09/16/20 09/16/20 20:42 20:47 20:52 Pulse Rate 78 71 99 H O2 Sat by Pulse 97 97 98 Oximetry 09/16/20 09/16/20 09/16/20 20:57 21:02 21:03 Pulse Rate 72 72 74 O2 Sat by Pulse 98 97 93 Oximetry 09/16/20 09/16/20 09/16/20 21:07 21:12 21:17 Pulse Rate 83 74 74 O2 Sat by Pulse 98 100 100 Oximetry 09/16/20 09/16/20 09/16/20 21:22 21:27 21:32 Pulse Rate 71 84 74 O2 Sat by Pulse 99 98 98 Oximetry 09/16/20 09/16/20 09/16/20 21:37 21:42 21:47 Pulse Rate 72 81 56 L O2 Sat by Pulse 98 98 86 Oximetry 09/16/20 09/16/20 09/16/20 21:50 21:52 21:55 Pulse Rate 56 L 33 L 74 O2 Sat by Pulse 83 L 0 L 96 Oximetry 09/16/20 09/16/20 09/16/20 22:00 22:05 22:10 Pulse Rate 71 73 75 O2 Sat by Pulse 98 98 99 Oximetry 09/16/20 09/16/20 09/16/20 22:15 22:20 22:25 Pulse Rate 83 71 75 O2 Sat by Pulse 98 98 98 Oximetry 09/16/20 09/16/20 09/16/20 22:30 22:35 22:40 Pulse Rate 84 73 87 O2 Sat by Pulse 97 99 98 Oximetry 09/16/20 09/16/20 09/16/20 22:45 22:50 22:55 Pulse Rate 78 79 83 O2 Sat by Pulse 98 98 99 Oximetry 09/16/20 09/16/20 09/16/20 23:01 23:04 23:06 Pulse Rate 63 97 H O2 Sat by Pulse 83 L 78 L 82 L Oximetry 09/16/20 09/16/20 09/16/20 23:09 23:14 23:19 Pulse Rate 69 68 66 O2 Sat by Pulse 100 99 99 Oximetry 09/16/20 09/16/20 09/16/20 23:24 23:29 23:34 Pulse Rate 75 73 83 O2 Sat by Pulse 97 99 100 Oximetry 09/16/20 09/16/20 09/16/20 23:39 23:44 23:49 Pulse Rate 80 106 H 76 O2 Sat by Pulse 99 98 99 Oximetry 09/16/20 09/16/20 09/17/20 23:54 23:59 00:04 Pulse Rate 113 H 74 91 H O2 Sat by Pulse 97 97 98 Oximetry 09/17/20 09/17/20 09/17/20 00:09 00:14 00:19 Pulse Rate 67 83 83 O2 Sat by Pulse 96 98 95 Oximetry 09/17/20 09/17/20 09/17/20 00:22 00:24 00:29 Pulse Rate 73 88 96 H O2 Sat by Pulse 94 97 98 Oximetry 09/17/20 09/17/20 09/17/20 00:34 00:37 00:39 Pulse Rate 87 197 H 97 H O2 Sat by Pulse 97 79 L 71 L Oximetry 09/17/20 09/17/20 09/17/20 00:49 00:56 00:59 Pulse Rate 50 L 181 H O2 Sat by Pulse 59 L 60 L 80 L Oximetry 09/17/20 09/17/20 09/17/20 01:01 01:04 01:09 Pulse Rate 64 68 O2 Sat by Pulse 63 L 97 96 Oximetry 09/17/20 09/17/20 09/17/20 01:14 01:19 01:24 Pulse Rate 68 59 L 63 O2 Sat by Pulse 96 99 99 Oximetry 09/17/20 09/17/20 09/17/20 01:29 01:34 01:39 Pulse Rate 66 69 71 O2 Sat by Pulse 98 97 97 Oximetry 09/17/20 09/17/20 09/17/20 01:44 01:49 01:54 Pulse Rate 77 75 73 O2 Sat by Pulse 97 98 98 Oximetry 09/17/20 09/17/20 09/17/20 01:59 02:04 02:06 Pulse Rate 70 78 79 O2 Sat by Pulse 99 97 94 Oximetry 09/17/20 09/17/20 09/17/20 02:09 02:14 02:19 Pulse Rate 71 82 81 O2 Sat by Pulse 100 100 100 Oximetry 09/17/20 09/17/20 09/17/20 02:24 02:29 02:34 Pulse Rate 81 74 69 O2 Sat by Pulse 99 98 98 Oximetry 09/17/20 09/17/20 09/17/20 02:39 02:44 02:49 Pulse Rate 76 82 72 O2 Sat by Pulse 97 98 96 Oximetry 09/17/20 09/17/20 09/17/20 02:54 03:00 03:05 Pulse Rate 66 70 98 H O2 Sat by Pulse 97 95 100 Oximetry 09/17/20 09/17/20 09/17/20 03:10 03:15 03:20 Pulse Rate 63 60 68 O2 Sat by Pulse 100 98 97 Oximetry 09/17/20 09/17/20 09/17/20 03:25 03:30 03:35 Pulse Rate 68 68 67 O2 Sat by Pulse 98 97 98 Oximetry 09/17/20 09/17/20 09/17/20 03:40 03:45 03:50 Pulse Rate 67 67 91 H O2 Sat by Pulse 97 97 97 Oximetry 09/17/20 09/17/20 09/17/20 03:55 04:00 04:05 Pulse Rate 65 70 71 O2 Sat by Pulse 97 97 98 Oximetry 09/17/20 09/17/20 09/17/20 04:10 04:15 04:20 Pulse Rate 81 75 84 O2 Sat by Pulse 97 98 98 Oximetry 09/17/20 09/17/20 09/17/20 04:25 04:30 04:35 Pulse Rate 73 87 75 O2 Sat by Pulse 97 97 97 Oximetry 09/17/20 09/17/20 09/17/20 04:40 04:45 04:50 Pulse Rate 75 73 79 O2 Sat by Pulse 97 97 96 Oximetry 09/17/20 09/17/20 09/17/20 04:55 05:00 05:05 Pulse Rate 76 68 76 O2 Sat by Pulse 98 99 97 Oximetry 09/17/20 09/17/20 09/17/20 05:10 05:15 05:20 Pulse Rate 70 80 74 O2 Sat by Pulse 98 99 97 Oximetry 09/17/20 09/17/20 09/17/20 05:25 05:30 05:35 Pulse Rate 74 79 71 O2 Sat by Pulse 98 97 97 Oximetry 09/17/20 09/17/20 09/17/20 05:40 05:45 05:50 Pulse Rate 73 93 H 73 O2 Sat by Pulse 98 98 97 Oximetry 09/17/20 09/17/20 09/17/20 05:55 06:00 06:05 Pulse Rate 76 68 67 O2 Sat by Pulse 97 98 97 Oximetry 09/17/20 09/17/20 09/17/20 06:10 06:15 06:20 Pulse Rate 75 76 88 O2 Sat by Pulse 99 97 96 Oximetry 09/17/20 09/17/20 09/17/20 06:25 06:30 06:35 Pulse Rate 74 74 71 O2 Sat by Pulse 96 97 97 Oximetry 09/17/20 09/17/20 09/17/20 06:40 06:45 06:50 Pulse Rate 73 79 75 O2 Sat by Pulse 98 98 98 Oximetry 09/17/20 09/17/20 09/17/20 06:55 07:00 07:05 Pulse Rate 76 73 75 O2 Sat by Pulse 97 99 98 Oximetry 09/17/20 09/17/20 09/17/20 07:10 07:12 07:15 Pulse Rate 78 66 75 O2 Sat by Pulse 98 94 94 Oximetry 09/17/20 09/17/20 09/17/20 07:17 07:20 07:23 Pulse Rate 67 63 65 O2 Sat by Pulse 94 95 93 Oximetry 09/17/20 09/17/20 09/17/20 07:25 07:29 07:30 Pulse Rate 76 69 76 O2 Sat by Pulse 95 94 95 Oximetry 09/17/20 09/17/20 09/17/20 07:35 07:40 07:45 Pulse Rate 69 77 72 O2 Sat by Pulse 98 97 99 Oximetry 09/17/20 09/17/20 09/17/20 07:49 07:50 07:55 Pulse Rate 95 H 81 75 O2 Sat by Pulse 94 99 98 Oximetry 09/17/20 09/17/20 09/17/20 08:00 08:05 08:10 Pulse Rate 80 73 68 O2 Sat by Pulse 99 98 97 Oximetry 09/17/20 09/17/20 08:15 08:20 Pulse Rate 74 79 O2 Sat by Pulse 98 98 Oximetry - Exam Breasts: normal Cardiovascular: Regular rate Lungs: Normal air movement Abdomen: Present: normal appearance, soft Vulva: both: normal Uterus: Present: normal, fundal height above umbilicus FHR: category 1 Uterine Contraction Monitor Mode: External Uterine Contraction Pattern: Absent Uterine Tone Measurement Phase: Resting Extremities: normal Deep Tendon Reflex Grade: Normal +2 - Labs Labs: Abnormal Labs 09/14/20 09/14/20 09/14/20 23:18 23:40 23:40 WBC 12.3 H RBC 2.89 L Hgb 9.3 L Hct 27.3 L RDW 12.7 L [place] % (Auto) 9.5 H [place] # (Auto) 1.2 H Seg Neutrophils # 8.4 H Sodium 132 L Carbon Dioxide 21 L Creatinine 0.5 L Magnesium Alkaline Phosphatase 143 H Total Protein 6.1 L Albumin 3.3 L Urine WBC (Auto) > 182.0 H 09/15/20 09/15/20 09/15/20 11:37 12:10 17:46 WBC RBC Hgb 9.1 L Hct 27.1 L RDW [place] % (Auto) [place] # (Auto) Seg Neutrophils # Sodium Carbon Dioxide Creatinine Magnesium 5.40 H 6.30 H Alkaline Phosphatase Total Protein Albumin Urine WBC (Auto) 09/16/20 09/16/20 00:33 05:40 WBC RBC Hgb Hct RDW [place] % (Auto) [place] # (Auto) Seg Neutrophils # Sodium Carbon Dioxide Creatinine Magnesium 6.60 H 4.90 H Alkaline Phosphatase Total Protein Albumin Urine WBC (Auto)
[2020-09-17] MEDS: FAMOTIDINE 20 MG TAB PO SCH (10:13)
[2020-09-17] MEDS: SERTRALINE 100 MG TAB PO SCH (10:13)
[2020-09-17] MEDS: FERROUS SULFATE 325 MG TAB PO SCH (10:13)
[2020-09-17] MEDS: PRENATAL VIT27-FE FUMARATE-FOLIC ACID VIT TAB PO SCH (10:13)
--- NOTE | 2020-09-17 12:57 | Event Note ---
Date: 09/17/20 pt had increase in vaginal bleeding after BM, Dr. Beth updated. Orders for u/s and H&H placed. T CAT 1, no current active vaginal bleeding.
[2020-09-17 14:18] LABS: Hematocrit 23.9 % (30.3-42.9); Hemoglobin 8.6 gm/dl (10.1-14.3)
[2020-09-17] MEDS: ACETAMINOPHEN 500 MG TAB PO PRN ×2 (15:31→22:16)
--- NOTE | 2020-09-17 16:26 | Ultrasound Report ---
ULTRASOUND BIOPHYSICAL PROFILE ULTRASOUND OB LIMITED INDICATION: well being, vaginal bleeding TECHNIQUE: Transabdominal ultrasound imaging. COMPARISON: 09/14/2020. 09/15/2020. FINDINGS: breathing movement = 2 Gross body movement = 2 tone = 2 Qualitative amniotic fluid volume = 2 Total biophysical score = 8/8 Amniotic fluid index is 11.2 cm. Presentation is cephalic. heart rate is 159 beats per minute. Additional findings: There is better visualization of the placenta on today's exam. The placenta is p osterior, grade 1. A complete previa is identified on today's exam. The cervix measures 4 cm in lengt h. IMPRESSION: biophysical profile equals 8/8. A complete placenta previa is identified on today's exam. The cervix measures 4 cm in length. Signer Name: Dustin Richardson Jr, MD Signed: 09/17/2020 4:21 PM Workstation Name: [id number]
[2020-09-17] MEDS: LACTATED RINGERS 1,000 ML IV SCH ×2 (16:40→21:26)
[2020-09-17] MEDS ORDERED: ZOLPIDEM 5 MG TAB PO ONE (21:00)
--- NOTE | 2020-09-17 21:00 | Event Note ---
Date: 09/17/20 pt c/o ctx rates between 5-8 on the 0-10 scale. Pt emptied her bladder. no new vaginal bleeding. will give 500ml bolus and give one dose of brethine. Dr. Beth updated on status. will continue to monitor closely. u/s done earlier assigned BPP 8/8, CL 4cm and noted placenta to be a complete previa. pt's activity will now be limited to complete bed rest.
[2020-09-17] MEDS ORDERED: TERBUTALINE 1 MG/1 ML INJ SUB-Q ONE (21:56)
[2020-09-18] MEDS ORDERED: ZOLPIDEM 5 MG TAB PO ONE ×2 (00:15→23:26)
[2020-09-18] MEDS: LACTATED RINGERS 1,000 ML IV SCH ×2 (00:30→12:41)
--- NOTE | 2020-09-18 08:10 | Progress Note ---
<MILO RAMIREZ - Last Filed: 09/18/20 08:10> Assessment and Plan - Patient Problems (1) Low lying placenta with hemorrhage in third trimester, antepartum Onset Date: ~08/30/20 Current Visit: Yes Status: Acute (2) 33 weeks gestation of Onset Date: ~09/15/20 Current Visit: Yes Status: Acute Subjective - Subjective Date of service: 09/18/20 Principal diagnosis: IUP@ 33w2d CTX and bleeding; prev c/s BMZ completed Interval history: Pt states bleeding that started tonight and became heavy after returning to bed from the restroom. Denies recent sexual activity and states that she has not been told that she has any abnormalities of the placenta. U/s in triage during this visit revealed low lying placenta. After the u/s was reviewed with the patient, she states that she was just told not to have sex. After further evaluation of her chart from the office, it was revealed that she has placenta previa. EDC Confirmation: 11/03/2020 Past History : 4 Term Births: 2 Premature Births: 0 Living Children: 2 Para: 2 Mult. Births: 0 Prev : 1 Prev. attempt? 0 Aborta: 1 Elect. Ab: 0 Spont. Ab: 1 Ectopics: 0 # 1 Delivery date: 2003 Weeks Gestation: term Delivery type: Delivery location: [facility] Infant Sex: Male weight: 5#14 # 2 Delivery date: 2008 Weeks Gestation: 41 Delivery type: Delivery location: [facility] Sex: Male weight: 11lbs Comments: failed IOL # 3 Delivery date: 07/01/2017 Weeks Gestation: 9 Delivery type: SAB Delivery location: [facility] Comments: D&C done Risk Factors: Smoked Tobacco Use: Former smoker Cigarettes: Yes Year quit: 02/27/2020 Smokeless Tobacco Use: Never Counseled to quit/cut down: yes Passive smoke exposure: no Drug use: no HIV high-risk behavior: no Alcohol use: no Exercise: yes Seatbelt use: 100 % Dietary Counseling: pn yes Past Medical History: no hx of dvt while taking ocp Depression - prozac was 3x day has now decreased to QD Anxiety Past Medical History Abnormal PAP: negative FRANCO Exposure: negative Infertility: negative Uterine Anomaly: negative Uterine Surgery (not C/S): negative Other Gynecologic Problems: negative Social Hx: Patient is single Smoking - 1/2 pack per day; pt now reports 2 cigs/day; 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 Infection History Hx of STD: none HIV Risk Eval: no Hepatitis B Risk Eval: low risk Personal hx. of genital herpes: no Partner hx. of genital herpes: no Rash, Viral, or Febrile illness since last LMP? no Varicella/Chicken Pox Status: Previous Disease TB Risk: no Genetic History ADVANCED MATERNAL AGE Congenital Heart Defect: Mom: no Dad: no Edmond Disease: Mom: no Dad: no Thalassemia Mom: no Dad: no Neural Tube Defect Mom: no Dad: no Down's Syndrome Mom: no Dad: no Bryan-Sachs Mom: no Dad: no Sickle Cell Disease/Trait Mom: no Dad: no Hemophilia Mom: no Dad: no Muscular Dystrophy Mom: no Dad: no Cystic Fibrosis Mom: no Dad: no [place] Chorea Mom: no Dad: no Mental Retardation Mom: no Dad: no Fragile X Mom: no Dad: no Other Genetic/Chromosomal Disorder Mom: no Dad: no Child w/other defect Mom: no Dad: no Enviromental Exposures Xray Exposure: no Medication, drug, or alcohol use since LMP: no Chemical/Other Exposure: no Exposure to Cat Liter: no Hx of Parvovirus (Fifth Disease): no Occupational Exposure to Children: none Active Medications (reviewed today): OMEPRAZOLE () VALACYCLOVIR HCL 500 MG ORAL TABLET (VALACYCLOVIR HCL) 1 po bid x3 days as needed ZOLOFT 100 MG ORAL TABLET (SERTRALINE HCL) 1 q am Current Allergies (reviewed today): * NKDA (Critical) Patient reports: vaginal bleeding (when voiding ), movement normal, no new complaints, no loss of fluid, no contractions Objective - Vital Signs Vital Signs: Vital Signs - 12hr 09/17/20 09/17/20 09/17/20 20:33 21:20 21:21 Temperature 98.1 F Pulse Rate 71 64 66 Respiratory 18 Rate Blood Pressure 104/59 105/65 Blood Pressure [Left] O2 Sat by Pulse 99 Oximetry 09/17/20 09/17/20 09/17/20 21:25 21:30 21:35 Temperature Pulse Rate 74 81 99 H Respiratory Rate Blood Pressure Blood Pressure [Left] O2 Sat by Pulse 99 99 97 Oximetry 09/17/20 09/17/20 09/17/20 21:40 21:45 21:50 Temperature Pulse Rate 100 H 96 H 101 H Respiratory Rate Blood Pressure Blood Pressure [Left] O2 Sat by Pulse 97 97 97 Oximetry 09/17/20 09/17/20 09/17/20 21:55 22:00 22:05 Temperature Pulse Rate 120 H 98 H 96 H Respiratory Rate Blood Pressure Blood Pressure [Left] O2 Sat by Pulse 98 98 99 Oximetry 09/17/20 09/17/20 09/17/20 22:10 22:15 22:20 Temperature Pulse Rate 109 H 107 H 95 H Respiratory Rate Blood Pressure Blood Pressure [Left] O2 Sat by Pulse 98 99 98 Oximetry 09/18/20 09/18/20 09/18/20 00:08 07:34 07:35 Temperature 98.1 F 98.3 F Pulse Rate 83 72 72 Respiratory 18 16 Rate Blood Pressure 90/55 107/69 Blood Pressure 107/69 [Left] O2 Sat by Pulse 100 100 Oximetry - Labs Labs: Abnormal Labs 09/14/20 09/14/20 09/14/20 23:18 23:40 23:40 WBC 12.3 H RBC 2.89 L Hgb 9.3 L Hct 27.3 L RDW 12.7 L [place] % (Auto) 9.5 H [place] # (Auto) 1.2 H Seg Neutrophils # 8.4 H Sodium 132 L Carbon Dioxide 21 L Creatinine 0.5 L Magnesium Alkaline Phosphatase 143 H Total Protein 6.1 L Albumin 3.3 L Urine WBC (Auto) > 182.0 H 09/15/20 09/15/20 09/15/20 11:37 12:10 17:46 WBC RBC Hgb 9.1 L Hct 27.1 L RDW [place] % (Auto) [place] # (Auto) Seg Neutrophils # Sodium Carbon Dioxide Creatinine Magnesium 5.40 H 6.30 H Alkaline Phosphatase Total Protein Albumin Urine WBC (Auto) 09/16/20 09/16/20 09/17/20 00:33 05:40 13:56 WBC RBC Hgb 8.6 L Hct 23.9 L RDW [place] % (Auto) [place] # (Auto) Seg Neutrophils # Sodium Carbon Dioxide Creatinine Magnesium 6.60 H 4.90 H Alkaline Phosphatase Total Protein Albumin Urine WBC (Auto) Laboratory Results - last 24 hr 09/17/20 13:56 Hgb 8.6 L Hct 23.9 L <VIKTORIYA MCDANIEL D - Last Filed: 09/18/20 08:54> Assessment and Plan Patient sitting in bed, no complaints, will allow to shower Patient informed she will not be able to work until after delivery, instructed to get FMLA and DA paperwork sent to the office for completion 1. IUP@33 3/7 wga 2. Placenta previa, admitted for bleeding, no bleeding since last pm ~8p. Will allow home if no bleeding for 24 hours 3. contractions: improved according to patient. Observe closely 4. Anxiety/Depression: Continue Zoloft 5. Desires sterilization: desires (B) salpingectomy - Patient Problems (1) 33 weeks gestation of Onset Date: ~09/15/20 Current Visit: Yes Status: Acute Plan to address problem: IUP@ 33 3/7wga (2) Anxiety Current Visit: Yes Status: Acute Plan to address problem: Continue Zoloft (3) Placenta previa antepartum in third trimester Current Visit: Yes Status: Acute Plan to address problem: No bleeding since ~8p last pm, ? allow home if no bleeding for 24hours (4) Previous section Current Visit: Yes Status: Acute Plan to address problem: Will attempt to get C/S scheduled (5) Anemia Current Visit: Yes Status: Acute Plan to address problem: Start iron bid (6) Sterilization Current Visit: Yes Status: Acute Plan to address problem: Will ensure consents are signed Subjective - Subjective Principal diagnosis: IUP@ 33w2d CTX and bleeding; prev c/s BMZ completed Patient reports: vaginal bleeding Objective - Vital Signs Vital Signs: Vital Signs - 12hr 09/17/20 09/17/20 09/17/20 21:20 21:21 21:25 Temperature Pulse Rate 64 66 74 Respiratory Rate Blood Pressure 105/65 Blood Pressure [Left] O2 Sat by Pulse 99 99 Oximetry 09/17/20 09/17/20 09/17/20 21:30 21:35 21:40 Temperature Pulse Rate 81 99 H 100 H Respiratory Rate Blood Pressure Blood Pressure [Left] O2 Sat by Pulse 99 97 97 Oximetry 09/17/20 09/17/20 09/17/20 21:45 21:50 21:55 Temperature Pulse Rate 96 H 101 H 120 H Respiratory Rate Blood Pressure Blood Pressure [Left] O2 Sat by Pulse 97 97 98 Oximetry 09/17/20 09/17/20 09/17/20 22:00 22:05 22:10 Temperature Pulse Rate 98 H 96 H 109 H Respiratory Rate Blood Pressure Blood Pressure [Left] O2 Sat by Pulse 98 99 98 Oximetry 09/17/20 09/17/20 09/18/20 22:15 22:20 00:08 Temperature 98.1 F Pulse Rate 107 H 95 H 83 Respiratory 18 Rate Blood Pressure 90/55 Blood Pressure [Left] O2 Sat by Pulse 99 98 Oximetry 09/18/20 09/18/20 07:34 07:35 Temperature 98.3 F Pulse Rate 72 72 Respiratory 16 Rate Blood Pressure 107/69 Blood Pressure 107/69 [Left] O2 Sat by Pulse 100 100 Oximetry - Labs Labs: Abnormal Labs 09/14/20 09/14/20 09/14/20 23:18 23:40 23:40 WBC 12.3 H RBC 2.89 L Hgb 9.3 L Hct 27.3 L RDW 12.7 L [place] % (Auto) 9.5 H [place] # (Auto) 1.2 H Seg Neutrophils # 8.4 H Sodium 132 L Carbon Dioxide 21 L Creatinine 0.5 L Magnesium Alkaline Phosphatase 143 H Total Protein 6.1 L Albumin 3.3 L Urine WBC (Auto) > 182.0 H 09/15/20 09/15/20 09/15/20 11:37 12:10 17:46 WBC RBC Hgb 9.1 L Hct 27.1 L RDW [place] % (Auto) [place] # (Auto) Seg Neutrophils # Sodium Carbon Dioxide Creatinine Magnesium 5.40 H 6.30 H Alkaline Phosphatase Total Protein Albumin Urine WBC (Auto) 09/16/20 09/16/20 09/17/20 00:33 05:40 13:56 WBC RBC Hgb 8.6 L Hct 23.9 L RDW [place] % (Auto) [place] # (Auto) Seg Neutrophils # Sodium Carbon Dioxide Creatinine Magnesium 6.60 H 4.90 H Alkaline Phosphatase Total Protein Albumin Urine WBC (Auto) Laboratory Results - last 24 hr 09/17/20 13:56 Hgb 8.6 L Hct 23.9 L
[2020-09-18] MEDS: FERROUS SULFATE 325 MG TAB PO SCH ×2 (09:58→21:11)
[2020-09-18] MEDS: PRENATAL VIT27-FE FUMARATE-FOLIC ACID VIT TAB PO SCH (09:58)
[2020-09-18] MEDS: SERTRALINE 100 MG TAB PO SCH (09:58)
[2020-09-18] MEDS: ACETAMINOPHEN 500 MG TAB PO PRN ×2 (10:55→23:42)
--- NOTE | 2020-09-18 15:47 | Event Note ---
Date: 09/18/20 (contractions) Received a call from the RN that patient was having an increase contractions. Upon entering room examined patient's zaire pad and a small amount of bleeding noted. Reviewed monitor strip. Contractions noted q1-[address] Varghese. Plan to initiate Procardia 10 mg BID, and obtain an ultrasound for cervical length. Plan reviewed with patient and RN and they verbalized understanding.
[2020-09-18] MEDS ORDERED: NIFEdipine*For Tocolysis only* 10 MG CAPSULE PO SCH (16:00)
[2020-09-18] MEDS ORDERED: fentaNYL 100 MCG/2 ML INJ IV NR (17:01)
--- NOTE | 2020-09-18 17:49 | Ultrasound Report ---
US OB limited INDICATION / CLINICAL INFORMATION: Contractions. COMPARISON: None available. FINDINGS: A fetus is present in cephalic presentation. heart rate is 169. Cervix length is 4 cm. IMPRESSION: Fetus in cephalic presentation with heart rate of 169. Cervix length is 4 cm Signer Name: Zeke Castillo MD FACR Signed: 09/18/2020 5:45 PM Workstation Name: [id number]
[2020-09-18] MEDS: DOCUSATE SODIUM 100 MG CAP PO SCH (21:11)
[2020-09-18] MEDS ORDERED: diphenhydrAMINE 50 MG CAP PO ONE (21:46)
--- NOTE | 2020-09-18 23:30 | Event Note ---
Date: 09/18/20 (Pt can not sleep) Received a call from RN stating that patient is upset because she can not sleep. Also pt complaining that her eye itches. Will order Ambien 5 mg PO X1 for sleep and saline drops for her eyes.
[2020-09-18] MEDS: HYPROMELLOSE 0.5% OPHTH SOLN 15 ML OU PRN (23:41)
[2020-09-19] MEDS: LACTATED RINGERS 1,000 ML IV SCH ×3 (03:34→21:04)
[2020-09-19] MEDS: HYPROMELLOSE 0.5% OPHTH SOLN 15 ML OU PRN (04:04)
--- NOTE | 2020-09-19 08:01 | Progress Note ---
Assessment and Plan IU at 33 4/7 weeks gestation Placenta previa with hemorrhage Prior CS Rec: Continue to monitor for worsening hemorrhage or labor Iron replacement treatment Continue inpt observation until bleeding has resolved for 24-48hrs Subjective - Subjective Date of service: 09/19/20 Principal diagnosis: IUP@ 33w4d Interval history: Report heavy bleeding yesterday Notes occasional contractions Today she has light spotting Patient reports: vaginal bleeding Objective - Vital Signs Vital Signs: Vital Signs - 12hr 09/18/20 09/18/20 09/18/20 21:13 22:45 22:46 Temperature Pulse Rate 77 Respiratory Rate Blood Pressure 111/69 O2 Sat by Pulse 77 L 94 Oximetry 09/18/20 09/18/20 09/18/20 22:51 22:55 23:06 Temperature Pulse Rate 85 64 Respiratory Rate Blood Pressure O2 Sat by Pulse 98 81 L 88 Oximetry 09/18/20 09/18/20 09/18/20 23:11 23:12 23:17 Temperature Pulse Rate 118 H 71 Respiratory Rate Blood Pressure O2 Sat by Pulse 82 L 72 L 99 Oximetry 09/18/20 09/18/20 09/18/20 23:22 23:27 23:32 Temperature Pulse Rate 82 73 96 H Respiratory Rate Blood Pressure O2 Sat by Pulse 98 97 98 Oximetry 09/18/20 09/18/20 09/18/20 23:37 23:42 23:45 Temperature Pulse Rate 74 90 70 Respiratory Rate Blood Pressure 106/67 O2 Sat by Pulse 98 99 Oximetry 09/18/20 09/18/20 09/18/20 23:46 23:47 23:52 Temperature 97.4 F L Pulse Rate 84 79 Respiratory 20 Rate Blood Pressure O2 Sat by Pulse 99 99 99 Oximetry 09/18/20 09/19/20 09/19/20 23:57 00:02 00:07 Temperature Pulse Rate 84 80 87 Respiratory Rate Blood Pressure O2 Sat by Pulse 98 98 99 Oximetry 09/19/20 09/19/20 09/19/20 00:12 00:17 00:24 Temperature Pulse Rate 86 102 H Respiratory Rate Blood Pressure O2 Sat by Pulse 99 99 88 Oximetry 09/19/20 09/19/20 09/19/20 00:25 00:30 00:35 Temperature Pulse Rate 80 83 72 Respiratory Rate Blood Pressure O2 Sat by Pulse 85 98 98 Oximetry 02/12/0409/19/20 09/19/20 00:40 00:45 00:50 Temperature Pulse Rate 83 90 80 Respiratory Rate Blood Pressure O2 Sat by Pulse 98 98 97 Oximetry 09/19/20 09/19/20 09/19/20 00:55 01:00 01:05 Temperature Pulse Rate 90 99 H 82 Respiratory Rate Blood Pressure O2 Sat by Pulse 98 98 98 Oximetry 09/19/20 09/19/20 09/19/20 01:10 01:15 01:20 Temperature Pulse Rate 88 109 H 99 H Respiratory Rate Blood Pressure O2 Sat by Pulse 98 98 98 Oximetry 09/19/20 09/19/20 09/19/20 01:25 01:30 01:35 Temperature Pulse Rate 77 99 H 95 H Respiratory Rate Blood Pressure O2 Sat by Pulse 97 98 98 Oximetry 09/19/20 09/19/20 09/19/20 01:40 01:45 01:50 Temperature Pulse Rate 91 H 86 84 Respiratory Rate Blood Pressure O2 Sat by Pulse 98 98 98 Oximetry 09/19/20 09/19/20 09/19/20 01:55 02:00 02:05 Temperature Pulse Rate 90 97 H 103 H Respiratory Rate Blood Pressure O2 Sat by Pulse 98 98 97 Oximetry 09/19/20 09/19/20 09/19/20 02:10 02:15 02:20 Temperature Pulse Rate 84 93 H 90 Respiratory Rate Blood Pressure O2 Sat by Pulse 99 98 97 Oximetry 09/19/20 09/19/20 09/19/20 02:25 02:30 02:35 Temperature Pulse Rate 89 80 86 Respiratory Rate Blood Pressure O2 Sat by Pulse 98 99 98 Oximetry 09/19/20 09/19/20 09/19/20 02:40 02:45 02:50 Temperature Pulse Rate 88 85 85 Respiratory Rate Blood Pressure O2 Sat by Pulse 98 98 98 Oximetry 09/19/20 09/19/20 09/19/20 02:55 03:00 03:05 Temperature Pulse Rate 82 81 81 Respiratory Rate Blood Pressure O2 Sat by Pulse 98 99 99 Oximetry 09/19/20 09/19/20 09/19/20 03:10 03:15 03:20 Temperature Pulse Rate 80 85 79 Respiratory Rate Blood Pressure O2 Sat by Pulse 98 99 100 Oximetry 09/19/20 09/19/20 09/19/20 03:25 03:30 03:35 Temperature Pulse Rate 72 80 81 Respiratory Rate Blood Pressure O2 Sat by Pulse 99 98 98 Oximetry 09/19/20 09/19/20 09/19/20 03:40 03:45 03:50 Temperature Pulse Rate 86 89 83 Respiratory Rate Blood Pressure O2 Sat by Pulse 98 98 99 Oximetry 09/19/20 09/19/20 09/19/20 03:55 04:00 04:07 Temperature 98.0 F Pulse Rate 87 99 H Respiratory 20 Rate Blood Pressure O2 Sat by Pulse 98 100 100 Oximetry 09/19/20 09/19/20 09/19/20 04:13 04:15 04:17 Temperature Pulse Rate 64 69 96 H Respiratory Rate Blood Pressure 103/66 O2 Sat by Pulse 100 86 Oximetry 09/19/20 09/19/20 09/19/20 04:36 04:43 04:51 Temperature Pulse Rate 142 H Respiratory Rate Blood Pressure O2 Sat by Pulse 76 L 0 L 73 L Oximetry 09/19/20 09/19/20 09/19/20 04:57 05:18 05:29 Temperature Pulse Rate 159 H Respiratory Rate Blood Pressure O2 Sat by Pulse 77 L 73 L 0 L Oximetry 09/19/20 09/19/20 09/19/20 05:35 06:12 06:21 Temperature Pulse Rate Respiratory Rate Blood Pressure O2 Sat by Pulse 89 91 64 L Oximetry 09/19/20 09/19/20 09/19/20 06:46 06:54 06:55 Temperature Pulse Rate 148 H Respiratory Rate Blood Pressure O2 Sat by Pulse 86 72 L 89 Oximetry 09/19/20 09/19/20 09/19/20 07:00 07:07 07:12 Temperature Pulse Rate 69 Respiratory Rate Blood Pressure O2 Sat by Pulse 77 L 90 78 L Oximetry 09/19/20 09/19/20 09/19/20 07:14 07:17 07:19 Temperature Pulse Rate 136 H 74 77 Respiratory Rate Blood Pressure 115/59 O2 Sat by Pulse 82 L 98 Oximetry 09/19/20 09/19/20 09/19/20 07:22 07:27 07:32 Temperature Pulse Rate 72 78 78 Respiratory Rate Blood Pressure O2 Sat by Pulse 99 99 97 Oximetry 09/19/20 09/19/20 09/19/20 07:37 07:42 07:47 Temperature Pulse Rate 82 86 97 H Respiratory Rate Blood Pressure O2 Sat by Pulse 97 98 99 Oximetry 09/19/20 09/19/20 07:52 07:57 Temperature Pulse Rate 96 H 74 Respiratory Rate Blood Pressure O2 Sat by Pulse 99 98 Oximetry - Exam Narrative Exam: laying in bed NAD Abdomen: Present: normal appearance, soft Extremities: normal - Labs Labs: Abnormal Labs 09/14/20 09/14/20 09/14/20 23:18 23:40 23:40 WBC 12.3 H RBC 2.89 L Hgb 9.3 L Hct 27.3 L RDW 12.7 L [place] % (Auto) 9.5 H [place] # (Auto) 1.2 H Seg Neutrophils # 8.4 H Sodium 132 L Carbon Dioxide 21 L Creatinine 0.5 L Magnesium Alkaline Phosphatase 143 H Total Protein 6.1 L Albumin 3.3 L Urine WBC (Auto) > 182.0 H 09/15/20 09/15/20 09/15/20 11:37 12:10 17:46 WBC RBC Hgb 9.1 L Hct 27.1 L RDW [place] % (Auto) [place] # (Auto) Seg Neutrophils # Sodium Carbon Dioxide Creatinine Magnesium 5.40 H 6.30 H Alkaline Phosphatase Total Protein Albumin Urine WBC (Auto) 09/16/20 09/16/20 09/17/20 00:33 05:40 13:56 WBC RBC Hgb 8.6 L Hct 23.9 L RDW [place] % (Auto) [place] # (Auto) Seg Neutrophils # Sodium Carbon Dioxide Creatinine Magnesium 6.60 H 4.90 H Alkaline Phosphatase Total Protein Albumin Urine WBC (Auto) - Results US- obstetric: other (2/2 BPP 8/8 , 2/4 CL 4cm)
[2020-09-19] MEDS: MOXIFLOXACIN 0.5% OPHTH SOLN 3ML OU SCH ×2 (08:15→21:03)
--- NOTE | 2020-09-19 08:24 | Progress Note ---
Assessment and Plan - Patient Problems (1) 33 weeks gestation of Onset Date: ~09/15/20 Status: Acute (2) Placenta previa antepartum in third trimester Onset Date: ~09/15/20 Status: Acute Plan to address problem: IUP at 33 4/7 weeks gestation Placenta previa with hemorrhage [facility]: Continue to monitor for worsening hemorrhage or labor Iron replacement treatment Continue inpt observation until bleeding has resolved for 24-48hrs (3) Conjunctivitis Onset Date: ~09/18/20 Status: Acute Qualifiers: Conjunctivitis type: acute Acute conjunctivitis type: unspecified Laterality: right Qualified Code(s): H10.31 - Unspecified acute conjunctivitis, right eye Plan to address problem: moxifloxin eye drops ordered practice good hygiene Subjective - Subjective Date of service: 09/19/20 Principal diagnosis: IUP@ 33w4d Patient reports: vaginal bleeding (pt denies bleeding today) Objective - Vital Signs Vital Signs: Vital Signs - 12hr 09/18/20 09/18/20 09/18/20 21:13 22:45 22:46 Temperature Pulse Rate 77 Respiratory Rate Blood Pressure 111/69 O2 Sat by Pulse 77 L 94 Oximetry 09/18/20 09/18/20 09/18/20 22:51 22:55 23:06 Temperature Pulse Rate 85 64 Respiratory Rate Blood Pressure O2 Sat by Pulse 98 81 L 88 Oximetry 09/18/20 09/18/20 09/18/20 23:11 23:12 23:17 Temperature Pulse Rate 118 H 71 Respiratory Rate Blood Pressure O2 Sat by Pulse 82 L 72 L 99 Oximetry 09/18/20 09/18/20 09/18/20 23:22 23:27 23:32 Temperature Pulse Rate 82 73 96 H Respiratory Rate Blood Pressure O2 Sat by Pulse 98 97 98 Oximetry 09/18/20 09/18/20 09/18/20 23:37 23:42 23:45 Temperature Pulse Rate 74 90 70 Respiratory Rate Blood Pressure 106/67 O2 Sat by Pulse 98 99 Oximetry 09/18/20 09/18/20 09/18/20 23:46 23:47 23:52 Temperature 97.4 F L Pulse Rate 84 79 Respiratory 20 Rate Blood Pressure O2 Sat by Pulse 99 99 99 Oximetry 09/18/20 09/19/20 09/19/20 23:57 00:02 00:07 Temperature Pulse Rate 84 80 87 Respiratory Rate Blood Pressure O2 Sat by Pulse 98 98 99 Oximetry 09/19/20 09/19/20 09/19/20 00:12 00:17 00:24 Temperature Pulse Rate 86 102 H Respiratory Rate Blood Pressure O2 Sat by Pulse 99 99 88 Oximetry 09/19/20 09/19/20 09/19/20 00:25 00:30 00:35 Temperature Pulse Rate 80 83 72 Respiratory Rate Blood Pressure O2 Sat by Pulse 85 98 98 Oximetry 09/19/20 09/19/20 09/19/20 00:40 00:45 00:50 Temperature Pulse Rate 83 90 80 Respiratory Rate Blood Pressure O2 Sat by Pulse 98 98 97 Oximetry 09/19/20 09/19/20 09/19/20 00:55 01:00 01:05 Temperature Pulse Rate 90 99 H 82 Respiratory Rate Blood Pressure O2 Sat by Pulse 98 98 98 Oximetry 09/19/20 09/19/20 09/19/20 01:10 01:15 01:20 Temperature Pulse Rate 88 109 H 99 H Respiratory Rate Blood Pressure O2 Sat by Pulse 98 98 98 Oximetry 09/19/20 09/19/20 09/19/20 01:25 01:30 01:35 Temperature Pulse Rate 77 99 H 95 H Respiratory Rate Blood Pressure O2 Sat by Pulse 97 98 98 Oximetry 09/19/20 09/19/20 09/19/20 01:40 01:45 01:50 Temperature Pulse Rate 91 H 86 84 Respiratory Rate Blood Pressure O2 Sat by Pulse 98 98 98 Oximetry 09/19/20 09/19/20 09/19/20 01:55 02:00 02:05 Temperature Pulse Rate 90 97 H 103 H Respiratory Rate Blood Pressure O2 Sat by Pulse 98 98 97 Oximetry 09/19/20 09/19/20 09/19/20 02:10 02:15 02:20 Temperature Pulse Rate 84 93 H 90 Respiratory Rate Blood Pressure O2 Sat by Pulse 99 98 97 Oximetry 09/19/20 09/19/20 09/19/20 02:25 02:30 02:35 Temperature Pulse Rate 89 80 86 Respiratory Rate Blood Pressure O2 Sat by Pulse 98 99 98 Oximetry 09/19/20 09/19/20 09/19/20 02:40 02:45 02:50 Temperature Pulse Rate 88 85 85 Respiratory Rate Blood Pressure O2 Sat by Pulse 98 98 98 Oximetry 09/19/20 09/19/20 09/19/20 02:55 03:00 03:05 Temperature Pulse Rate 82 81 81 Respiratory Rate Blood Pressure O2 Sat by Pulse 98 99 99 Oximetry 09/19/20 09/19/20 09/19/20 03:10 03:15 03:20 Temperature Pulse Rate 80 85 79 Respiratory Rate Blood Pressure O2 Sat by Pulse 98 99 100 Oximetry 09/19/20 09/19/20 09/19/20 03:25 03:30 03:35 Temperature Pulse Rate 72 80 81 Respiratory Rate Blood Pressure O2 Sat by Pulse 99 98 98 Oximetry 09/19/20 09/19/20 09/19/20 03:40 03:45 03:50 Temperature Pulse Rate 86 89 83 Respiratory Rate Blood Pressure O2 Sat by Pulse 98 98 99 Oximetry 09/19/20 09/19/20 09/19/20 03:55 04:00 04:07 Temperature 98.0 F Pulse Rate 87 99 H Respiratory 20 Rate Blood Pressure O2 Sat by Pulse 98 100 100 Oximetry 09/19/20 09/19/20 09/19/20 04:13 04:15 04:17 Temperature Pulse Rate 64 69 96 H Respiratory Rate Blood Pressure 103/66 O2 Sat by Pulse 100 86 Oximetry 09/19/20 09/19/20 09/19/20 04:36 04:43 04:51 Temperature Pulse Rate 142 H Respiratory Rate Blood Pressure O2 Sat by Pulse 76 L 0 L 73 L Oximetry 09/19/20 09/19/20 09/19/20 04:57 05:18 05:29 Temperature Pulse Rate 159 H Respiratory Rate Blood Pressure O2 Sat by Pulse 77 L 73 L 0 L Oximetry 09/19/20 09/19/20 09/19/20 05:35 06:12 06:21 Temperature Pulse Rate Respiratory Rate Blood Pressure O2 Sat by Pulse 89 91 64 L Oximetry 09/19/20 09/19/20 09/19/20 06:46 06:54 06:55 Temperature Pulse Rate 148 H Respiratory Rate Blood Pressure O2 Sat by Pulse 86 72 L 89 Oximetry 09/19/20 09/19/20 09/19/20 07:00 07:07 07:12 Temperature Pulse Rate 69 Respiratory Rate Blood Pressure O2 Sat by Pulse 77 L 90 78 L Oximetry 09/19/20 09/19/20 09/19/20 07:14 07:17 07:19 Temperature Pulse Rate 136 H 74 77 Respiratory Rate Blood Pressure 115/59 O2 Sat by Pulse 82 L 98 Oximetry 09/19/20 09/19/20 09/19/20 07:22 07:27 07:32 Temperature Pulse Rate 72 78 78 Respiratory Rate Blood Pressure O2 Sat by Pulse 99 99 97 Oximetry 09/19/20 09/19/20 09/19/20 07:37 07:42 07:47 Temperature Pulse Rate 82 86 97 H Respiratory Rate Blood Pressure O2 Sat by Pulse 97 98 99 Oximetry 09/19/20 09/19/20 09/19/20 07:52 07:57 08:02 Temperature Pulse Rate 96 H 74 82 Respiratory Rate Blood Pressure O2 Sat by Pulse 99 98 98 Oximetry 09/19/20 09/19/20 09/19/20 08:07 08:12 08:17 Temperature Pulse Rate 80 84 83 Respiratory Rate Blood Pressure O2 Sat by Pulse 97 98 98 Oximetry - Exam Breasts: normal Cardiovascular: Regular rate Lungs: Normal air movement Abdomen: Present: normal appearance, soft Vulva: both: normal Uterus: Present: normal FHR: auscultation normal, category 1 Uterine Contraction Monitor Mode: External Uterine Contraction Pattern: Irregular Uterine Tone Measurement Phase: Contraction Uterine Contraction Intensity: Mild Extremities: normal - Labs Labs: Abnormal Labs 09/14/20 09/14/20 09/14/20 23:18 23:40 23:40 WBC 12.3 H RBC 2.89 L Hgb 9.3 L Hct 27.3 L RDW 12.7 L [place] % (Auto) 9.5 H [place] # (Auto) 1.2 H Seg Neutrophils # 8.4 H Sodium 132 L Carbon Dioxide 21 L Creatinine 0.5 L Magnesium Alkaline Phosphatase 143 H Total Protein 6.1 L Albumin 3.3 L Urine WBC (Auto) > 182.0 H 09/15/20 09/15/20 09/15/20 11:37 12:10 17:46 WBC RBC Hgb 9.1 L Hct 27.1 L RDW [place] % (Auto) [place] # (Auto) Seg Neutrophils # Sodium Carbon Dioxide Creatinine Magnesium 5.40 H 6.30 H Alkaline Phosphatase Total Protein Albumin Urine WBC (Auto) 09/16/20 09/16/20 09/17/20 00:33 05:40 13:56 WBC RBC Hgb 8.6 L Hct 23.9 L RDW [place] % (Auto) [place] # (Auto) Seg Neutrophils # Sodium Carbon Dioxide Creatinine Magnesium 6.60 H 4.90 H Alkaline Phosphatase Total Protein Albumin Urine WBC (Auto)
[2020-09-19] MEDS: ACETAMINOPHEN 500 MG TAB PO PRN ×2 (08:40→15:13)
[2020-09-19] MEDS: SERTRALINE 100 MG TAB PO SCH (09:59)
[2020-09-19] MEDS: FAMOTIDINE 20 MG TAB PO SCH (10:00)
[2020-09-19] MEDS: FERROUS SULFATE 325 MG TAB PO SCH ×2 (10:00→21:00)
[2020-09-19] MEDS: PRENATAL VIT27-FE FUMARATE-FOLIC ACID VIT TAB PO SCH (10:01)
[2020-09-19] MEDS: DOCUSATE SODIUM 100 MG CAP PO SCH (10:01)
[2020-09-19] MEDS ORDERED: ZOLPIDEM 5 MG TAB PO ONE (20:33)
[2020-09-20] MEDS: LACTATED RINGERS 1,000 ML IV SCH ×2 (01:32→10:35)
[2020-09-20] MEDS ORDERED: TERBUTALINE 1 MG/1 ML INJ SUB-Q ONE (02:24)
[2020-09-20] MEDS: MOXIFLOXACIN 0.5% OPHTH SOLN 3ML OU SCH (06:43)
[2020-09-20] MEDS ORDERED: NIFEdipine*For Tocolysis only* 10 MG CAPSULE PO NR (07:37)
--- NOTE | 2020-09-20 07:43 | Progress Note ---
Assessment and Plan A: 35 y.o. @ 33.5 wks no bleeding this AM. - Patient Problems (1) Placenta previa antepartum in third trimester Onset Date: ~09/15/20 Current Visit: Yes Status: Acute Plan to address problem: IUP at 33 5/7 weeks gestation Placenta previa with hemorrhage Continue to monitor for worsening hemorrhage or labor Iron replacement treatment Continue inpatient observation until bleeding has resolved for 24-48hrs If no bleeding noted this AM and early this afternoon, will discharge home this afternoon with strict precautions. (2) 33 weeks gestation of Onset Date: ~09/15/20 Current Visit: Yes Status: Acute Plan to address problem: Minimal variability noted on today's monitor strip. BPP ordered for this AM. Irregular ctxs noted on monitor this AM. Procardia 10 mg PO ordered X 1. Subjective - Subjective Date of service: 09/20/20 (Pt doing well. ) Principal diagnosis: IUP@ 33w4d Patient reports: vaginal bleeding (pt denies bleeding today), movement normal (Denies LOF. ), contractions (Having some occasional ctxs.) Objective - Vital Signs Vital Signs: Vital Signs - 12hr 09/19/20 09/19/20 09/19/20 19:43 19:55 20:00 Temperature Pulse Rate 189 H Respiratory Rate Blood Pressure Blood Pressure [Left] O2 Sat by Pulse 85 86 80 L Oximetry 09/19/20 09/19/20 09/19/20 20:03 20:06 20:08 Temperature Pulse Rate 47 L 59 L Respiratory Rate Blood Pressure Blood Pressure [Left] O2 Sat by Pulse 88 70 L 73 L Oximetry 09/19/20 09/19/20 09/19/20 20:11 20:17 20:39 Temperature Pulse Rate Respiratory Rate Blood Pressure Blood Pressure [Left] O2 Sat by Pulse 73 L 92 78 L Oximetry 09/19/20 09/19/20 09/19/20 20:48 20:57 21:01 Temperature Pulse Rate Respiratory Rate Blood Pressure Blood Pressure [Left] O2 Sat by Pulse 90 79 L 99 Oximetry 09/19/20 09/19/20 09/19/20 21:02 21:06 21:23 Temperature Pulse Rate 82 Respiratory Rate Blood Pressure Blood Pressure [Left] O2 Sat by Pulse 82 L 89 88 Oximetry 09/19/20 09/19/20 09/19/20 21:28 21:29 21:34 Temperature Pulse Rate 95 H 110 H Respiratory Rate Blood Pressure Blood Pressure [Left] O2 Sat by Pulse 92 97 98 Oximetry 09/19/20 09/19/20 09/19/20 21:39 21:44 21:49 Temperature Pulse Rate 100 H 100 H 88 Respiratory Rate Blood Pressure Blood Pressure [Left] O2 Sat by Pulse 98 98 99 Oximetry 09/19/20 09/19/20 09/19/20 21:54 22:00 22:05 Temperature Pulse Rate 88 97 H 97 H Respiratory Rate Blood Pressure Blood Pressure [Left] O2 Sat by Pulse 98 97 98 Oximetry 09/19/20 09/19/20 09/19/20 22:10 22:15 22:20 Temperature Pulse Rate 104 H 104 H 100 H Respiratory Rate Blood Pressure Blood Pressure [Left] O2 Sat by Pulse 98 98 98 Oximetry 09/19/20 09/19/20 09/19/20 22:25 22:30 22:35 Temperature Pulse Rate 94 H 98 H 98 H Respiratory Rate Blood Pressure Blood Pressure [Left] O2 Sat by Pulse 99 98 99 Oximetry 09/19/20 09/19/20 09/19/20 22:40 22:45 22:50 Temperature Pulse Rate 100 H 100 H 109 H Respiratory Rate Blood Pressure Blood Pressure [Left] O2 Sat by Pulse 98 99 98 Oximetry 09/19/20 09/19/20 09/19/20 22:55 23:00 23:05 Temperature Pulse Rate 101 H 113 H 96 H Respiratory Rate Blood Pressure Blood Pressure [Left] O2 Sat by Pulse 98 99 98 Oximetry 09/19/20 09/19/20 09/19/20 23:10 23:15 23:20 Temperature Pulse Rate 114 H 87 95 H Respiratory Rate Blood Pressure Blood Pressure [Left] O2 Sat by Pulse 98 99 98 Oximetry 09/19/20 09/19/20 09/19/20 23:25 23:29 23:31 Temperature Pulse Rate 102 H 65 78 Respiratory Rate Blood Pressure Blood Pressure [Left] O2 Sat by Pulse 98 81 L 95 Oximetry 09/19/20 09/19/20 09/19/20 23:34 23:36 23:44 Temperature Pulse Rate 94 H Respiratory Rate Blood Pressure Blood Pressure [Left] O2 Sat by Pulse 81 L 98 82 L Oximetry 09/19/20 09/19/20 09/19/20 23:51 23:56 23:58 Temperature Pulse Rate 76 Respiratory Rate Blood Pressure Blood Pressure [Left] O2 Sat by Pulse 89 88 91 Oximetry 09/20/20 09/20/20 09/20/20 00:00 00:02 00:03 Temperature 97.7 F Pulse Rate 98 H 102 H 50 L Respiratory 16 Rate Blood Pressure Blood Pressure 101/61 [Left] O2 Sat by Pulse 97 82 L 94 Oximetry 09/20/20 09/20/20 09/20/20 00:07 00:13 00:15 Temperature Pulse Rate 53 L 150 H 98 H Respiratory Rate Blood Pressure 101/61 Blood Pressure [Left] O2 Sat by Pulse 70 L 85 Oximetry 09/20/20 09/20/20 09/20/20 02:24 02:29 02:34 Temperature Pulse Rate 85 89 105 H Respiratory Rate Blood Pressure Blood Pressure [Left] O2 Sat by Pulse 99 98 98 Oximetry 09/20/20 09/20/20 09/20/20 02:39 02:44 02:49 Temperature Pulse Rate 101 H 110 H 152 H Respiratory Rate Blood Pressure Blood Pressure [Left] O2 Sat by Pulse 98 98 100 Oximetry 09/20/20 09/20/20 09/20/20 02:54 02:59 03:04 Temperature Pulse Rate 104 H 115 H 105 H Respiratory Rate Blood Pressure Blood Pressure [Left] O2 Sat by Pulse 99 98 99 Oximetry 09/20/20 09/20/20 09/20/20 03:09 03:14 03:19 Temperature Pulse Rate 107 H 108 H 111 H Respiratory Rate Blood Pressure Blood Pressure [Left] O2 Sat by Pulse 98 98 98 Oximetry 09/20/20 09/20/20 09/20/20 03:24 03:29 03:34 Temperature Pulse Rate 106 H 98 H 105 H Respiratory Rate Blood Pressure Blood Pressure [Left] O2 Sat by Pulse 98 98 98 Oximetry 09/20/20 09/20/20 09/20/20 03:39 03:44 03:49 Temperature Pulse Rate 105 H 102 H 103 H Respiratory Rate Blood Pressure Blood Pressure [Left] O2 Sat by Pulse 98 98 98 Oximetry 09/20/20 09/20/20 09/20/20 03:54 03:59 04:00 Temperature 97.8 F Pulse Rate 106 H 134 H 97 H Respiratory 16 Rate Blood Pressure Blood Pressure 102/63 [Left] O2 Sat by Pulse 99 99 99 Oximetry 09/20/20 09/20/20 09/20/20 04:04 04:09 04:13 Temperature Pulse Rate 133 H 126 H 112 H Respiratory Rate Blood Pressure 102/63 Blood Pressure [Left] O2 Sat by Pulse 98 99 Oximetry 09/20/20 09/20/20 09/20/20 04:14 04:19 04:24 Temperature Pulse Rate 125 H 108 H 94 H Respiratory Rate Blood Pressure Blood Pressure [Left] O2 Sat by Pulse 99 98 98 Oximetry 09/20/20 09/20/20 09/20/20 04:29 04:34 04:39 Temperature Pulse Rate 111 H 115 H 107 H Respiratory Rate Blood Pressure Blood Pressure [Left] O2 Sat by Pulse 97 98 98 Oximetry 09/20/20 09/20/20 09/20/20 04:44 04:49 04:54 Temperature Pulse Rate 101 H 109 H 104 H Respiratory Rate Blood Pressure Blood Pressure [Left] O2 Sat by Pulse 98 98 98 Oximetry 09/20/20 09/20/20 09/20/20 04:59 05:04 05:09 Temperature Pulse Rate 102 H 110 H 99 H Respiratory Rate Blood Pressure Blood Pressure [Left] O2 Sat by Pulse 97 98 98 Oximetry 09/20/20 09/20/20 09/20/20 05:14 05:19 05:24 Temperature Pulse Rate 92 H 92 H 95 H Respiratory Rate Blood Pressure Blood Pressure [Left] O2 Sat by Pulse 96 99 98 Oximetry 09/20/20 09/20/20 09/20/20 05:29 05:34 05:39 Temperature Pulse Rate 104 H 114 H 116 H Respiratory Rate Blood Pressure Blood Pressure [Left] O2 Sat by Pulse 98 99 99 Oximetry 09/20/20 09/20/20 09/20/20 05:44 05:49 05:54 Temperature Pulse Rate 107 H 108 H 101 H Respiratory Rate Blood Pressure Blood Pressure [Left] O2 Sat by Pulse 99 98 98 Oximetry 09/20/20 09/20/20 09/20/20 05:59 06:04 06:09 Temperature Pulse Rate 105 H 100 H 94 H Respiratory Rate Blood Pressure Blood Pressure [Left] O2 Sat by Pulse 98 99 99 Oximetry 09/20/20 09/20/20 09/20/20 06:14 06:19 06:24 Temperature Pulse Rate 97 H 120 H 85 Respiratory Rate Blood Pressure Blood Pressure [Left] O2 Sat by Pulse 98 100 100 Oximetry 09/20/20 09/20/20 09/20/20 06:29 06:34 06:39 Temperature Pulse Rate 102 H 100 H 95 H Respiratory Rate Blood Pressure Blood Pressure [Left] O2 Sat by Pulse 100 100 100 Oximetry 09/20/20 09/20/20 09/20/20 06:44 06:49 06:54 Temperature Pulse Rate 104 H 86 95 H Respiratory Rate Blood Pressure Blood Pressure [Left] O2 Sat by Pulse 100 100 100 Oximetry 09/20/20 09/20/20 09/20/20 06:59 07:04 07:09 Temperature Pulse Rate 94 H 91 H 90 Respiratory Rate Blood Pressure Blood Pressure [Left] O2 Sat by Pulse 100 100 99 Oximetry 09/20/20 09/20/20 09/20/20 07:14 07:19 07:24 Temperature Pulse Rate 90 89 95 H Respiratory Rate Blood Pressure Blood Pressure [Left] O2 Sat by Pulse 99 100 99 Oximetry 09/20/20 09/20/20 07:29 07:34 Temperature Pulse Rate 87 95 H Respiratory Rate Blood Pressure Blood Pressure [Left] O2 Sat by Pulse 99 99 Oximetry - Exam Breasts: deferred Cardiovascular: Regular rate Lungs: Normal air movement Abdomen: Present: normal appearance, soft. Absent: distention, tenderness Vulva: both: normal Uterus: Present: normal FHR: other (BPP ordered this AM. Minimal variabilty noted on monitor strip this AM.) Uterine Contraction Monitor Mode: External Uterine Contraction Pattern: Irregular Uterine Contraction Intensity: Mild Extremities: normal Deep Tendon Reflex Grade: Normal +2 - Labs Labs: Abnormal Labs 09/14/20 09/14/20 09/14/20 23:18 23:40 23:40 WBC 12.3 H RBC 2.89 L Hgb 9.3 L Hct 27.3 L RDW 12.7 L Barry % (Auto) 9.5 H Barry # (Auto) 1.2 H Seg Neutrophils # 8.4 H Sodium 132 L Carbon Dioxide 21 L Creatinine 0.5 L Magnesium Alkaline Phosphatase 143 H Total Protein 6.1 L Albumin 3.3 L Urine WBC (Auto) > 182.0 H 09/15/20 09/15/20 09/15/20 11:37 12:10 17:46 WBC RBC Hgb 9.1 L Hct 27.1 L RDW Barry % (Auto) Barry # (Auto) Seg Neutrophils # Sodium Carbon Dioxide Creatinine Magnesium 5.40 H 6.30 H Alkaline Phosphatase Total Protein Albumin Urine WBC (Auto) 09/16/20 09/16/20 09/17/20 00:33 05:40 13:56 WBC RBC Hgb 8.6 L Hct 23.9 L RDW Barry % (Auto) Barry # (Auto) Seg Neutrophils # Sodium Carbon Dioxide Creatinine Magnesium 6.60 H 4.90 H Alkaline Phosphatase Total Protein Albumin Urine WBC (Auto)
[2020-09-20 08:05] VITALS: BP 109/74
[2020-09-20] MEDS: ACETAMINOPHEN 500 MG TAB PO PRN ×2 (08:08→12:48)
[2020-09-20] MEDS: FERROUS SULFATE 325 MG TAB PO SCH (10:35)
[2020-09-20] MEDS: PRENATAL VIT27-FE FUMARATE-FOLIC ACID VIT TAB PO SCH (10:35)
[2020-09-20] MEDS: FAMOTIDINE 20 MG TAB PO SCH (10:35)
[2020-09-20] MEDS: SERTRALINE 100 MG TAB PO SCH (10:35)
--- NOTE | 2020-09-20 11:12 | Ultrasound Report ---
. ULTRASOUND BIOPHYSICAL PROFILE INDICATION: well being. COMPARISON: 09/17/2020 FINDINGS: heart rate is 160 beats per minute. breathing movement = 2 Gross body movement = 2 tone = 2 Qualitative amniotic fluid volume = 2 IMPRESSION: biophysical profile = 03/23 Signer Name: Dustin Richardson Jr, MD Signed: 09/20/2020 11:08 AM Workstation Name: [id number]
--- NOTE | 2020-09-20 12:41 | Discharge Summary ---
Providers - Providers Date of Admission: 09/15/20 11:48 Date of discharge: 09/20/20 (Pt agrees to discharge home.) Attending physician: FRANCISCO VICTORIA 09/15/20 06:09 Consult to Physician [CONS] Urgent Comment: Consulting Provider: NEO MCWILLIAMS Physician Instructions: Pt is in 2007. Reason For Exam: 33 wks, vaginal bleeding, previous 09/15/20 08:46 Consult to Physician [CONS] Routine Comment: Consulting Provider: BRUNO YANES Physician Instructions: Reason For Exam: 33 wks with vaginal bleeding. Low lying placenta. Primary care physician: FRANCISCO VICTORIA Hospitalization Reason for admission: other Discharge diagnosis: other (Undelivered @ 33+ wks.) Pertinent studies: Discussed discharge home and taking Procardia. Discussed how to take Procardia and to call provider immediately if she starts to have vaginal bleeding and contractions Pt aware and will schedule an office visit next week for follow up. Hospital course: S: Pt is doing well. Denies vaginal bleeding, LOF. Feeling some occasional ctxs. O: VSS. No bleeding noted on zaire-pad. No ctxs seen on monitor. Category 1 monitor strip. BPP on 09/20 is 8/8. A: 35 y.o. @ 33+ wks with complete placenta previa, no with no vaginal bleeding for greater than 24 hours. In good condition for discharge home. P: Discharge home with instructions. Please take Procardia 10 mg every 6 hours. Please call safety and health consultant provider immediately if contractions and vaginal bleeding resume. Condition at discharge: Good Disposition: DC-01 TO HOME OR SELFCARE Plan - Provider Discharge Summary Activity: routine, no sex for 6 weeks, no heavy lifting 4 weeks, no strenuous exercise Diet: routine Additional instructions: [] Smoking cessation referral if applicable(refer to patient education folder for contact #) [] Refer to [facility] Booklet Call your doctor immediately for: * Fever > 100.5 * Heavy vaginal bleeding ( >1 pad per hour) * Severe persistent headache * Shortness of breath * Reddened, hot, painful area to leg or breast * Drainage or odor from incision. * Keep incision clean and dry at all times and follow doctor's instructions regarding bathing/showering Please call safety and health consultant provider immediately if you have additional vaginal bleeding and contractions. Please take Procardia 10mg every 6 hours. This will help to relax your uterus so that you will not contract. If while you are taking the medication you become dizzy or lightheaded call the safety and health consultant provider immediately. If you have any questions or concerns after discharge please do not hesitate to call the office at [phone]. Please schedule an appointment in the office next week to be seen for follow up. - Follow up plan Follow up: FRANCISCO VICTORIA MD [Primary Care Provider] - 7 Days
== END 2020-09-20 13:54 | disposition home or self-care (01) | DRG 781 ==
LOC: TRG 22:32 → APU 22:35 → LD 09-15 00:40 → TRG 09-15 11:47 → LD 09-15 11:48
PROVIDERS: ADMIT Obstetrics & Gynecology; ATTEND Obstetrics & Gynecology
DX: O44.53 Low lying placenta with hemorrhage, third trimester (principal); O26.893 Other specified pregnancy related conditions, third trimester; H10.31 Unspecified acute conjunctivitis, right eye; O99.343 Other mental disorders complicating pregnancy, third trimester; F41.8 Other specified anxiety disorders; O99.013 Anemia complicating pregnancy, third trimester; Z20.822 Contact with and (suspected) exposure to COVID-19; Z3A.33 33 weeks gestation of pregnancy; Z30.2 Encounter for sterilization; Z79.899 Other long term (current) drug therapy
CPT/HCPCS: 36415; 76815; 76819; 80053; 81001; 83735; 85014; 85018; 85025; 86592; 86850; 86900; 86901; G0378; J0595; J0702; J2405; J3010; J3105; J3475; J7120; Q0169; U0003

== ENCOUNTER 2020-10-03 13:33 | Observation (INO) | payer MEDICAID ==
[2020-10-03 03:03] LABS: Bilirubin,Urine NEG (Negative); Blood,Urine NEG (Negative); Color,Urine Yellow (Yellow); Mucus,Urine FEW /HPF; Protein,Urine <15 mg/dL mg/dL (Negative); Urobilinogen,Urine < 2.0 mg/dL (<2.0)
[2020-10-03 04:00] LABS: Basophils % (Auto) 0.2 % (0.0-1.8); Eosinophils % (Auto) 0.3 % (0.0-4.3); Hematocrit 26.9 % (30.3-42.9); Hemoglobin 9.2 gm/dl (10.1-14.3); Lymphocytes # (Auto) 2.3 K/mm3 (1.2-5.4); Lymphocytes % (Auto) 23.4 % (13.4-35.0); Mean Corpuscular HGB Conc 34 % (30-34); Mean Corpuscular Volume 94 fl (79-97); Monocytes # (Auto) 0.8 K/mm3 (0.0-0.8); Monocytes % (Auto) 8.6 % (0.0-7.3); Platelet Count 315 K/mm3 (140-440); Red Blood Count 2.85 M/mm3 (3.65-5.03); Red Cell Distribution Width 14.3 % (13.2-15.2)
--- NOTE | 2020-10-03 05:30 | Ultrasound Report ---
ULTRASOUND OBSTETRIC LIMITED INDICATION / CLINICAL INFORMATION: Cervical length. Clinical Gestational Age (GA): weeks.days COMPARISON: OB ultrasound biophysical profile 09/20/2020 FINDINGS: Cervical length 2.7 cm Signer Name: Jaydon Oneal MD Signed: 10/03/2020 5:25 AM Workstation Name: [id number]
--- NOTE | 2020-10-03 06:58 | History and Physical Report ---
History of Present Illness Date of examination: 10/03/20 Date of admission: 10/03/2020 Chief complaint: vaginal bleeding History of present illness: Pt called the office at 1508pm on 10/02/20 c/o having large vaginal bleeding soaking a pad. She was advised to f/u in triage for admission and evaluation. She was called back at 1630pm and pt advised this provider she had take her procardia and was not now coming in to the hospital as her bleeding stopped. Pt advised at this time to still come in for evaluation.She did not come in. Pt then called provider at 1244am today stating she had bleeding after urination and she was advised to come in for evaluation. After arrival in triage and since admission, she has not had minimal bleeding noted but the CL today is 2.74 and it was 4cm on 09/17/20 during last admission. Pt will be admitted and monitored for signs/sx of labor as was as for more vaginal bleeding. I had d/w that if she continues to have vaginal bleeding or if baby shows signs of distress, of if it appears she is in labor as her cervical length has changed, she will need delivery prior to scheduled c/s on 10/14/20 possiblly today. She expressed understanding. EDC Confirmation: 11/03/2020 Gestational Age: 6 2/7 weeks Past History : 4 Term Births: 2 Premature Births: 0 Living Children: 2 Para: 2 Mult. Births: 0 Prev : 1 Prev. attempt? 0 Aborta: 1 Elect. Ab: 0 Spont. Ab: 1 Ectopics: 0 # 1 Delivery date: 2003 Weeks Gestation: term Delivery type: Delivery location: [facility] Sex: Male weight: 5#14 # 2 Delivery date: 2008 Weeks Gestation: 41 Delivery type: Delivery location: [facility] Sex: Male weight: 11lbs Comments: failed IOL # 3 Delivery date: 07/01/2017 Weeks Gestation: 9 Delivery type: SAB Delivery location: [facility] Comments: D&C done Risk Factors: Smoked Tobacco Use: Former smoker Cigarettes: Yes Year quit: 02/27/2020 Smokeless Tobacco Use: Never Counseled to quit/cut down: yes Passive smoke exposure: no Drug use: no HIV high-risk behavior: no Alcohol use: no Exercise: yes Seatbelt use: 100 % Dietary Counseling: pn yes Past Medical History: no hx of dvt while taking ocp Depression - prozac was 3x day has now decreased to QD Anxiety Past Medical History Abnormal PAP: negative FRANCO Exposure: negative Infertility: negative Uterine Anomaly: negative Uterine Surgery (not C/S): negative Other Gynecologic Problems: negative Social Hx: Patient is single Smoking - 1/2 pack per day; pt now reports 2 cigs/day; 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 Infection History Hx of STD: none HIV Risk Eval: no Hepatitis B Risk Eval: low risk Personal hx. of genital herpes: no Partner hx. of genital herpes: no Rash, Viral, or Febrile illness since last LMP? no Varicella/Chicken Pox Status: Previous Disease TB Risk: no Genetic History ADVANCED MATERNAL AGE Congenital Heart Defect: Mom: no Dad: no Edmond Disease: Mom: no Dad: no Thalassemia Mom: no Dad: no Neural Tube Defect Mom: no Dad: no Down's Syndrome Mom: no Dad: no Bryan-Sachs Mom: no Dad: no Sickle Cell Disease/Trait Mom: no Dad: no Hemophilia Mom: no Dad: no Muscular Dystrophy Mom: no Dad: no Cystic Fibrosis Mom: no Dad: no [place] Chorea Mom: no Dad: no Mental Retardation Mom: no Dad: no Fragile X Mom: no Dad: no Other Genetic/Chromosomal Disorder Mom: no Dad: no Child w/other defect Mom: no Dad: no Enviromental Exposures Xray Exposure: no Medication, drug, or alcohol use since LMP: no Chemical/Other Exposure: no Exposure to Cat Liter: no Hx of Parvovirus (Fifth Disease): no Occupational Exposure to Children: none Active Medications (reviewed today): OMEPRAZOLE () VALACYCLOVIR HCL 500 MG ORAL TABLET (VALACYCLOVIR HCL) 1 po bid x3 days as needed ZOLOFT 100 MG ORAL TABLET (SERTRALINE HCL) 1 q am Current Allergies (reviewed today): * NKDA (Critical) Past History Past Medical History: other (see hpi) Past Surgical History: other (see hpi) CLINICAL LAB SCIENTIST History: other (see hpi) Family/Genetic History: other (see hpi) Social history: other (see hpi) - Obstetrical History Expected Date of Delivery: 11/03/20 Actual Gestation: 35 Week(s) 4 Day(s) : 4 Para: 2 Induced : 1 Number of Living Children: 2 Medications and Allergies Allergies Allergy/AdvReac Type Severity Reaction Status Date / Time No Known Allergies Allergy Verified 06/29/17 12:54 Home Medications Medication Instructions Recorded Confirmed Last Taken Type Loratadine 10 mg PO BID 06/29/17 09/15/20 07/01/17 09:15 History NIFEdipine [Procardia] 10 mg PO Q6HR #90 capsule 09/20/20 Unknown Rx - Vital Signs Vital signs: Vital Signs Pulse Pulse Ox 85 99 10/03/20 01:52 10/03/20 01:52 Temp Pulse Resp BP Pulse Ox 98.7 F 84 18 111/66 96 10/03/20 01:53 10/03/20 02:37 10/03/20 01:53 10/03/20 01:53 10/03/20 02:37 - Physical Exam Cardiovascular: Normal S1, Normal S2 Lungs: Positive: Normal air movement Abdomen: Positive: normal appearance, soft. Negative: distention, tenderness, guarding Genitourinary (Female): Positive: other (deferred as pt states she is not having bleeding at this time.) Deep Tendon Reflex Grade: Normal +2 - Obstetrical FHR: category 1 Results Result Diagrams: 10/03/20 02:25 Abnormal lab results 10/03/20 10/03/20 Range/Units 02:00 02:25 RBC 2.85 L (3.65-5.03) M/mm3 Hgb 9.2 L (10.1-14.3) gm/dl Hct 26.9 L (30.3-42.9) % [place] % (Auto) 8.6 H (0.0-7.3) % Urine WBC (Auto) 47.0 H (0.0-6.0) /HPF All other labs normal. Assessment and Plan - Patient Problems (1) Vaginal bleeding Current Visit: Yes Status: Acute (2) Placenta previa antepartum in third trimester Onset Date: ~09/15/20 Current Visit: No Status: Acute Plan to address problem: -admit and obs for furhter bleeding or s/sx of labor -plan of care d/w pt and questions were addressed and answered. -Consult [facility] as pt is known to service and has been followed -s/p BMZ last admission. (3) Previous section Current Visit: No Status: Acute
[2020-10-03] MEDS: metroNIDAZOLE/NS 1000 MG-200ML 1,000 MG in EMPTY BAG 0 ML IV SCH ×2 (12:31→21:14)
[~2020-10-03 13:33] MED LIST changes: -ANCEF/STERILE WATER 2 GM/20 ML 2 GM/20 ML SYRINGE IV NR; +LACTATED RINGERS 1,000 ML ONE; +LACTATED RINGERS 500 ML IV ONE
--- NOTE | 2020-10-03 15:41 | Event Note ---
Date: 10/03/20 S/w Dr. Whatley who states would not deliver based on CL at this time. She will send over the complete consult this evening.
[2020-10-03] MEDS: LACTATED RINGERS 1,000 ML IV SCH (19:00)
[2020-10-03] MEDS ORDERED: LACTATED RINGERS 1,000 ML ONE (19:15)
[2020-10-03] MEDS ORDERED: DOCUSATE SODIUM 100 MG CAP PO SCH (20:00)
[2020-10-03] MEDS ORDERED: FERROUS SULFATE 325 MG TAB PO SCH (20:00)
[2020-10-03] MEDS: FAMOTIDINE 20 MG TAB PO SCH (21:13)
[2020-10-03] MEDS: SERTRALINE 100 MG TAB PO SCH (21:18)
[2020-10-03] MEDS ORDERED: diphenhydrAMINE 50 MG CAP PO NR (22:00)
[2020-10-03] MEDS ORDERED: metroNIDAZOLE/NS 1000 MG-200ML 1,000 MG in EMPTY BAG 0 ML IV SCH (22:00)
[2020-10-03] MEDS ORDERED: ACETAMINOPHEN 500 MG TAB PO ONE (23:54)
--- NOTE | 2020-10-03 23:58 | Ultrasound Report ---
ULTRASOUND OBSTETRIC LIMITED INDICATION / CLINICAL INFORMATION: ptl, previa, cervical length. Clinical Gestational Age (GA): 35.5 weeks.days COMPARISON: 09/20/2020 OB ultrasound FINDINGS: Cervical length 2.7 cm. Signer Name: Jaydon Oneal MD Signed: 10/03/2020 11:53 PM Workstation Name: [id number]
[2020-10-04] MEDS: LACTATED RINGERS 1,000 ML IV SCH ×3 (03:30→14:12)
[2020-10-04] MEDS ORDERED: LACTATED RINGERS 1,000 ML ONE (03:31)
--- NOTE | 2020-10-04 07:32 | Progress Note ---
Assessment and Plan no current vaginal bleeding, occasional ctx noted on toco. rn will give IVF bolus and notify provider if not resolved. - Patient Problems (1) Low lying placenta with hemorrhage in third trimester, antepartum Onset Date: ~08/30/20 Current Visit: No Status: Acute (2) Previous section Current Visit: No Status: Acute (3) Vaginal bleeding during , antepartum Current Visit: No Status: Acute Subjective - Subjective Date of service: 10/04/20 Principal diagnosis: IUP @ 35+5 wks, previa Patient reports: movement normal, no new complaints, no loss of fluid, no vaginal bleeding Objective - Vital Signs Vital Signs: Vital Signs - 12hr 10/04/20 10/04/20 10/04/20 00:18 00:20 04:16 Temperature 98.0 F 97.9 F Pulse Rate 99 H Respiratory 20 20 Rate Blood Pressure 133/66 - Exam Cardiovascular: Regular rate Lungs: Clear to auscultation, Normal air movement Abdomen: Present: normal appearance, soft Uterus: Present: normal, fundal height above umbilicus FHR: auscultation normal, category 1 Uterine Contraction Monitor Mode: External Uterine Contraction Pattern: Irregular Uterine Tone Measurement Phase: Contraction Uterine Contraction Intensity: Mild Extremities: normal Deep Tendon Reflex Grade: Normal +2 - Labs Labs: Abnormal Labs 10/03/20 10/03/20 02:00 02:25 RBC 2.85 L Hgb 9.2 L Hct 26.9 L [place] % (Auto) 8.6 H Urine WBC (Auto) 47.0 H Laboratory Results - last 24 hr 10/03/20 Unknown Coronavirus (PCR) Negative
[2020-10-04] MEDS ORDERED: PRENATAL VIT27-FE FUMARATE-FOLIC ACID VIT TAB PO SCH (10:00)
[2020-10-04] MEDS ORDERED: FAMOTIDINE 20 MG TAB PO SCH (10:00)
[2020-10-04] MEDS ORDERED: DOCUSATE SODIUM 100 MG CAP PO SCH (10:00)
[2020-10-04] MEDS ORDERED: FERROUS SULFATE 325 MG TAB PO SCH (10:00)
[2020-10-04] MEDS: SERTRALINE 100 MG TAB PO SCH (10:52)
[2020-10-04] MEDS: FAMOTIDINE 20 MG TAB PO SCH (10:55)
[2020-10-04] MEDS ORDERED: ONDANSETRON 4 MG/2 ML INJ IV PRN (12:10)
--- NOTE | 2020-10-04 18:28 | Discharge Summary ---
Providers - Providers Date of Admission: 10/03/20 04:37 Date of discharge: 10/04/20 Attending physician: FRANCISCO VICTORIA 10/03/20 08:27 Consult to Physician [CONS] Routine Comment: Consulting Provider: BRUNO YANES Physician Instructions: Reason For Exam: wellbeing Primary care physician: FRANCISCO VICTORIA Hospitalization Reason for admission: Patient with placenta previa and vaginal bleeding Condition: Good Hospital course: Upon arrival to the hospital patient had decreasing of vaginal bleeding and doing a hospital stay experience no further bleeding no evidence of labor and had no vaginal bleeding greater than 24 hours and desire to discharge home. Patient hematocrit stable at 26%. Disposition: DC-01 TO HOME OR SELFCARE Time spent for discharge: 20 minutes - Discharge Diagnoses (1) Placenta previa antepartum in third trimester Status: Acute Comment: Patient desires D/C Core Measure Documentation - Palliative Care Palliative Care/ Comfort Measures: Not Applicable - Core Measures Any of the following diagnoses?: none Exam - Constitutional Vitals: Temp Pulse Resp BP Pulse Ox 98.1 F 75 16 105/69 96 10/04/20 15:53 10/04/20 15:53 10/04/20 15:53 10/04/20 15:53 10/03/20 02:37 General appearance: Present: no acute distress - Respiratory Respiratory effort: normal - Cardiovascular Rhythm: regular - Extremities Extremities: no ischemia Extremity abnormal: edema (1+ edema) - Abdominal General gastrointestinal: Present: soft, non-tender Female genitourinary: Present: other (No vaginal bleeding) - Rectal Rectal Exam: deferred - Integumentary Integumentary: Present: clear, warm, dry - Musculoskeletal Musculoskeletal: strength equal bilaterally - Psychiatric Psychiatric: appropriate mood/affect - Neurologic Neurologic: moves all extremities Plan Activity: other (Pelvic rest) Diet: regular Additional Instructions: Patient to call office for any vaginal bleeding, regular contractions, decreased movement or rupture of membranes. Patient is to keep scheduled office appointments. Follow up with: FRANCISCO VICTORIA MD [Primary Care Provider] - 7 Days Forms: [facility] Discharge Summary, Discharge Signature Page
[2020-10-04 20:54] VITALS: BP 108/66
== END 2020-10-04 21:30 | disposition home or self-care (01) ==
LOC: EDBD → TRG 13:33 → APU 13:34 → UNDODISOB 10-04 21:30
PROVIDERS: ADMIT Obstetrics & Gynecology; ATTEND Obstetrics & Gynecology
DX: O44.03 Complete placenta previa NOS or without hemorrhage, third trimester (principal); Z20.822 Contact with and (suspected) exposure to COVID-19; Z3A.35 35 weeks gestation of pregnancy; Z98.891 History of uterine scar from previous surgery; Z87.891 Personal history of nicotine dependence; Z79.899 Other long term (current) drug therapy
CPT/HCPCS: 36415; 76815; 81001; 85025; 86850; 86900; 86901; 87086; 96365; 96366; 96375; G0378; J2405; J7120; U0003; 76816

== ENCOUNTER 2021-10-04 12:08 | Emergency (ER) | payer MEDICAID ==
[2021-10-04 12:45] VITALS: BP 128/72
--- NOTE | 2021-10-04 14:24 | Emergency Department Report ---
ED General Adult HPI - General Chief complaint: Eye Problems Stated complaint: EYES SWOLLEN Time Seen by Provider: 10/04/21 13:22 Source: patient Mode of arrival: Ambulatory Limitations: No Limitations - History of Present Illness Initial comments: 36-year-old -[place] female patient presents with complaints of right pain and swelling x2 days. She denies any injury to her eye, blurry vision/vision changes, fever/chills/sweats, or difficulty moving her eye. No known drug allergies per patient. She rates her current pain as a 6/10 in severity. She has not tried any OTC medications for symptom Severity scale (0 -10): 7 - Related Data Home Medications Medication Instructions Recorded Confirmed Last Taken Loratadine 10 mg PO BID 06/29/17 10/08/20 07/01/17 09:15 Docusate Sodium [Colace] 100 mg PO BID 10/03/20 10/08/20 10/02/20 Famotidine [Pepcid] 40 mg PO DAILY 10/03/20 10/08/20 10/07/20 22:00 Ferrous Sulfate [Feosol 325 MG tab] 325 mg PO DAILY 10/03/20 10/08/20 10/07/20 10:00 Pnv,Calcium 72/Iron/Folic Acid 1 tab PO DAILY 10/03/20 10/08/20 10/07/20 10:00 [Pnv Plus Multivit Tab] Sertraline [Zoloft] 100 mg PO QDAY 10/03/20 10/08/20 10/07/20 22:00 Previous Rx's Medication Instructions Recorded Last Taken Type NIFEdipine [Procardia] 10 mg PO Q6HR #90 capsule 09/20/20 10/07/20 22:00 Rx Docusate Sodium [Colace] 100 mg PO BID PRN #60 capsule 10/08/20 Unknown Rx Ferrous Sulfate [Feosol 325 MG tab] 325 mg PO QDAY #60 tablet 10/08/20 Unknown Rx Ibuprofen [Motrin 800 MG tab] 800 mg PO Q8HR PRN #30 tablet 10/08/20 Unknown Rx oxyCODONE /ACETAMINOPHEN [Percocet 1 tab PO Q4HR #30 tab 10/08/20 Unknown Rx 5/325] Erythromycin [Erythromycin Ophth 1 cm OU Q3H 10 Days #1 tube 10/04/21 Unknown Rx Oint] Ibuprofen [Motrin 800 MG tab] 800 mg PO Q8HR PRN #20 tablet 10/04/21 Unknown Rx Allergies Allergy/AdvReac Type Severity Reaction Status Date / Time No Known Allergies Allergy Verified 06/29/17 12:54 ED Review of Systems ROS: Stated complaint: EYES SWOLLEN Other details as noted in HPI Constitutional: denies: chills, fever, malaise Eyes: eye pain. denies: eye discharge, vision change Neurological: denies: headache Hematological/Lymphatic: denies: swollen glands ED Past Medical Hx - Past Medical History Hx Congestive Heart Failure: No Hx Diabetes: No Hx GERD: Yes ("severe") Hx Renal Disease: Yes (kidney infections) Hx Headaches / Migraines: Yes (migraines) Hx Asthma: No Hx COPD: No - Surgical History Additional Surgical History: - Social History Smoking Status: Former Smoker - Medications Home Medications: Home Medications Medication Instructions Recorded Confirmed Last Taken Type Loratadine 10 mg PO BID 06/29/17 10/08/20 07/01/17 09:15 History NIFEdipine [Procardia] 10 mg PO Q6HR #90 capsule 09/20/20 10/08/20 10/07/20 22:00 Rx Docusate Sodium [Colace] 100 mg PO BID 10/03/20 10/08/20 10/02/20 History Famotidine [Pepcid] 40 mg PO DAILY 10/03/20 10/08/20 10/07/20 22:00 History Ferrous Sulfate [Feosol 325 MG tab] 325 mg PO DAILY 10/03/20 10/08/20 10/07/20 10:00 History Pnv,Calcium 72/Iron/Folic Acid 1 tab PO DAILY 10/03/20 10/08/20 10/07/20 10:00 History [Pnv Plus Multivit Tab] Sertraline [Zoloft] 100 mg PO QDAY 10/03/20 10/08/20 10/07/20 22:00 History Docusate Sodium [Colace] 100 mg PO BID PRN #60 capsule 10/08/20 Unknown Rx Ferrous Sulfate [Feosol 325 MG tab] 325 mg PO QDAY #60 tablet 10/08/20 Unknown Rx Ibuprofen [Motrin 800 MG tab] 800 mg PO Q8HR PRN #30 tablet 10/08/20 Unknown Rx oxyCODONE /ACETAMINOPHEN [Percocet 1 tab PO Q4HR #30 tab 10/08/20 Unknown Rx 5/325] Erythromycin [Erythromycin Ophth 1 cm OU Q3H 10 Days #1 tube 10/04/21 Unknown Rx Oint] Ibuprofen [Motrin 800 MG tab] 800 mg PO Q8HR PRN #20 tablet 10/04/21 Unknown Rx ED Physical Exam - General Limitations: No Limitations General appearance: alert, in no apparent distress - Head Head exam: Present: atraumatic, normocephalic - Eye Eye exam: Present: PERRL, EOMI. Absent: scleral icterus - Expanded Eye Exam Expanded Eyelids: Stye: Right (Inner upper lid, external, no surrounding cellulitic changes noted) - Neck Neck exam: Present: normal inspection - Respiratory Respiratory exam: Absent: respiratory distress - Cardiovascular Cardiovascular Exam: Present: regular rate - Neurological Exam Neurological exam: Present: alert, oriented X3 - Psychiatric Psychiatric exam: Present: normal affect, normal mood - Skin Skin exam: Present: warm, dry, intact, normal color. Absent: rash ED Course Vital Signs 10/04/21 12:44 Temperature 98.2 F Pulse Rate 70 Respiratory 18 Rate Blood Pressure 128/72 [Right] O2 Sat by Pulse 99 Oximetry ED Medical Decision Making - Medical Decision Making 36-year-old -[place]ish female patient presents with complaints of right pain and swelling x2 days. She denies any injury to her eye, blurry vision/vision changes, fever/chills/sweats, or difficulty moving her eye. No known drug allergies per patient. She rates her current pain as a 6/10 in severity. She has not tried any OTC medications for symptom Hordeolum noted to right upper eye. Will treat with erythromycin and warm compresses. Recommend follow-up with PCP in 3 to 5 days. She is otherwise well-appearing, her vitals are within normal limits, she is stable for discharge home. Discussed in detail signs and symptoms that should prompt immediate return to the ED with patient who verbalized understanding Critical care attestation.: If time is entered above; I have spent that time in minutes in the direct care of this critically ill patient, excluding procedure time. ED Disposition Clinical Impression: Hordeolum externum (stye) Disposition: 01 HOME / SELF CARE / HOMELESS Is pt being admited?: No Condition: Stable Instructions: Stye Prescriptions: Erythromycin [Erythromycin Ophth Oint] 1 cm OU Q3H 10 Days #1 tube Ibuprofen [Motrin 800 MG tab] 800 mg PO Q8HR PRN #20 tablet PRN Reason: pain Referrals: [facility] [Provider Group] - 3-5 Days
== END 2021-10-04 16:03 | disposition home or self-care (01) ==
LOC: ED 12:08
DX: H00.013 Hordeolum externum right eye, unspecified eyelid (principal); K21.9 Gastro-esophageal reflux disease without esophagitis; N15.9 Renal tubulo-interstitial disease, unspecified; G43.909 Migraine, unspecified, not intractable, without status migrainosus; Z87.891 Personal history of nicotine dependence
CPT/HCPCS: 99282